=== PATIENT | female | born 1980 | race Caucasian/White ===

== ENCOUNTER → 2018-10-20 10:35 | Outpatient (CLI) | payer OTHER, SELFPAY ==
--- NOTE | 2018-10-20 12:18 | NEURO ---
NCS and/or EMG Patient Report Ordering Doctor: Carrie Weeks DATE OF SERVICE: 10/20/18 Shira Morse is a 38-year-old female presents for electrodiagnostic testing of the upper limbs. She reports numbness and tingling in both hands. She also reports neck pain that intermittently radiates into the upper limbs. Next Electrodiagnostic findings: The right median motor nerve demonstrates prolonged distal latency with normal amplitude and conduction velocity. Left median motor response is within normal limits. Ulnar motor response is normal bilaterally, including conduction across the elbow. Normal median and ulnar F-wave bilaterally. Prolonged median sensory latency is noted bilaterally. Normal ulnar and radial sensory responses. Needle EMG testing shows no evidence of denervation with normal motor unit action potentials. Next Electrodiagnostic impression: This is an abnormal study in the upper limbs. 1. Electrodiagnostic findings demonstrate bilateral median mononeuropathy. This is consistent with a mild left carpal tunnel syndrome and a moderate right carpal tunnel syndrome 2. No electrodiagnostic evidence is noted for cervical radiculopathy. If there are any further questions, please do not hesitate to contact me.
== END ==
PROVIDERS: Family Provider Family Medicine; PCP Family Medicine; Referring Provider Anesthesiology Pain Medicine; Visit Provider Anesthesiology Pain Medicine
DX: R20.0 Anesthesia of skin (principal); R29.898 Other symptoms and signs involving the musculoskeletal system
CPT/HCPCS: 95886; 95913

== ENCOUNTER → 2019-11-02 13:29 | Outpatient (CLI) | payer OTHER, SELFPAY ==
[2015-09-29 12:49] VITALS: BMI 24.5
--- NOTE | 2019-11-02 13:33 | RAD_ITS ---
STUDY: X-RAY - LUMBAR SPINE REASON FOR EXAM: Female, 39 years old. Back pain radiating toward upper and lower extremities. Right flank pain. TECHNIQUE: 2 view(s) of the lumbar spine were obtained. COMPARISON: None FINDINGS: Normal lumbar lordosis. There is no substantial scoliosis. There is a normal alignment of the vertebrae. Normal vertebral bodies and endplates. Normal disc space heights. Multiple phleboliths. RAD/Lumbar Spine 2 or 3 Views IMPRESSION: No abnormality of the lower thoracic or lumbosacral spine. Electronically Signed: Con Rocha MD at 17:57 EST , Service support ,
--- NOTE | 2019-11-02 13:34 | RAD_ITS ---
STUDY: X-RAY - THORACIC SPINE REASON FOR EXAM: Female, 39 years old. Back pain with radiation to upper and lower extremities. TECHNIQUE: 3 view(s) of the thoracic spine were obtained on 4 images. COMPARISON: None. FINDINGS: Normal kyphosis of the thoracic spine. There is no substantial scoliosis. Normal thoracic vertebrae and endplates. Minimal intervertebral disc space narrowing with small osteophytes randomly distributed. The soft tissue structures are unremarkable. RAD/Thoracic Spine 3 Views IMPRESSION: Minimal thoracic spondylosis. No acute finding. Electronically Signed: Con Rocha MD at 17:57 EST , Service support ,
== END ==
PROVIDERS: Family Provider Family Medicine; PCP Family Medicine; Referring Provider Anesthesiology Pain Medicine; Visit Provider Anesthesiology Pain Medicine
DX: M47.814 Spondylosis without myelopathy or radiculopathy, thoracic region (principal); M54.5 Low back pain
CPT/HCPCS: 72072; 72100

== ENCOUNTER → 2020-05-09 13:24 | Outpatient (CLI) | payer OTHER, SELFPAY ==
[2015-09-29 12:49] VITALS: BMI 24.5
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
== END ==
PROVIDERS: PCP Family Medicine; Referring Provider Anesthesiology Pain Medicine; Visit Provider Anesthesiology Pain Medicine
DX: M54.2 Cervicalgia (principal); M54.9 Dorsalgia, unspecified
CPT/HCPCS: 72040; 72100

== ENCOUNTER 2021-12-05 09:56 | Day surgery (SDC) | payer OTHER, MEDICARE, SELFPAY ==
--- NOTE | 2021-12-05 10:07 | PCM.HP.BLA ---
History and Physical Date of Admission: 12/05/21 41 F who presents to the office today for Referred for evaluation of gastrointestinal issues with possible clostridium difficile in which she was diagnosed in July,. Onset of symptoms of April. Treated with Vancomycin x 2weeks, positive test, difficid treatment for ten days with completion in late September. Continuing to have pain with PO intake. Diarrhea continues with urgent diarrhea occurring 3-5 times a day with possible improvement in the last couple days. Also reports that overheating causes diarrhea so vacations are scheduled when the weather is cooler. Miralax used when pain becomes difficult. Reports Colonoscopy and 10-12 years prior. These were done due to stomach issues with biopsies performed and diagnosis of H.Pylori with treatment completed. Family history of paternal grandfather had esophageal cancer. Father had bile duct cancer with mets to colon with resection. Paternal grandmother has colon cancer. Paternal grandmothers family also had a lot of cancers. Mother?s side of the family has a lot of mental health diagnoses. Brother has Crohn?s disease. Her daughter is undergoing workup for Crohn?s versus colitis. ROS Const Constitutional: No anorexia, fatigue, fever(s), weight change or sleep problems Eyes Eyes: No change in vision ENT ENT: No abnormal hearing, difficulty swallowing, mouth lesions, tongue swelling or throat swelling Resp Respiratory: No cough or shortness of breath Cardio Cardiology: No chest pain at rest, chest pain with exertion, shortness of breath or dyspnea on exertion Gastro GI: No difficulty swallowing Genitourinary-Female: No difficulty urinating or burning urination Musc Musculoskeletal: No joint pain, joint swelling, muscle weakness or decreased muscle mass Skin Skin: No hair loss in leg, yellowing of the eye, itchy eyes, rash, skin ulcer or skin swelling Neuro Neurology: No abnormal hearing, abnormal movements, confusion, unsteady gait/balance or memory loss Psych Psychiatric: No anxiety, No confusion and No memory loss Endo Endocrine: No fatigue or weight change Aller/Imm Allergy/Immunologic: No itchy eyes, throat swelling or tongue swelling Vernon/Lymp Hematologic/Lymphatic: No easy bleeding, easy bruising or enlarged lymph nodes Exam Const General: cooperative and comfortable Nutritional Appearance: average body habitus and well nourished HENMT Head: normal to inspection Ears: hearing grossly normal bilaterally Nose: external nose normal Face and sinus: normal facial exam Mouth: oral mucosae normal Throat: posterior oropharynx normal Eyes General: appearance normal, both eyes and all related structures Neck Neck: normal visual inspection Chest Chest palpation & inspection: normal inspection of the chest and normal palpation of entire chest wall Resp Effort & Inspection: normal respiratory effort Auscultation: Bilateral: Clear to Auscultation Cardio Palpation: normal PMI Rate: regular rate Rhythm: regular rhythm GI Inspection: normal to inspection Auscultation: normal bowel sounds Percussion: normal to percussion Palpation: no hepatosplenomegaly Skin General: no rashes or lesions noted Neuro General: patient alert Extrem General: normal to inspection Psych Affect: normal affect Quality Reporting Tobacco Screening ([facility] 138) Smoking Status: Current every day smoker Assessment and Plan Assessment and Plan (1) C. difficile colitis: Status: Acute Plan - Dr. Pires Friend, DO: We will get the stool studies for C. difficile. If she is positive she will need to go back on fadoximyocin or vancomycin. She may also need a fecal transplant. We will perform a colonoscopy to see if she has inflammatory bowel disease as her brother has inflammatory bowel disease and infection is known to be an inciting event prior to the development. I will put her on colestipol and Bentyl for the cramping. (2) Abdominal pain: Status: Acute Plan - Dr. Pires Friend, DO: Abdominal pain possibly secondary to underlying peptic ulcer disease the patient has a history of H. pylori. She will undergo an upper endoscopy evaluate her esophagus due to family history of esophageal cancer in her stomach from H. pylori. (3) Family history of esophageal cancer: Status: Acute Plan Details Other Medications: New: colestipol 1 g PO BID 60 tabs 1RF Marciapj Sotomayor DAT[employer]OWER CONSULTANT, DATAPOWER CONSULTANT-C dicyclomine 20 mg PO TID PRN 90 tabs 1RF diarrhea and cramping Marciapj Sotomayor DATAPOWER CONSULTANT, DATAPOWER CONSULTANT-C vancomycin Take one capsule every six hours when also taking antibiotics. 125 mg PO Q6H 10 days [address] Pires Friend, DO I have re-examined the patient. There are no clinical changes since date of exam.
[2021-12-05 10:39] VITALS: BP 115/72; PULSE 50; RESP 16; TEMP 36; O2SAT 99; BMI 23.3
[2021-12-05] MEDS: Lactated Ringers 1,000 ML 15 ML IV (10:43)
--- NOTE | 2021-12-05 11:00 | COLBX_PTH ---
PATIENT: JUANA PAIGE LOC: EN U#:[id number] AGE/SX: 41/F ROOM: RE12/05/[address]: Dr. Pranay Saenz DO : 1980 BED: DIS: 12/05/2021 SPEC #: [id number] RECD: 12/05/21 14:31 STATUS: DEEPAK PARVIN #: [id number] PEPE: 12/05/21 11:[address]: Pranay Saenz DEPT: SURGICAL PATHOLOGY RECD BY: Yolande Parr ENTERED: 12/06/21 09:25 SP TYPE: COLON BX OTHR DR: Dr. Michael Hicks MD Tissues: A - Duodenum, NOS B - COLON BIOPSY C - Gastric mucous membrane D - Esophagus, NOS E - Ileum, NOS F - COLON BIOPSY Procedures: Special Stain Group II Surgery Specimen Level IV Alcian Blue/PAS (control) HEADER OPERATION: Colonoscopy with biopsy, EGD with biopsy ([facility] [place]) PRE-OP DIAGNOSIS: C. difficile colitis, abdominal pain, family history esophageal cancer TISSUE SUBMITTED: A ? Duodenum biopsy, B ? Pylorus biopsy, C ? Gastric body biopsy, D ? Distal esophagus biopsy, E ? Terminal ileum biopsy, F ? Random colon biopsy MICROSCOPIC DIAGNOSIS A. Duodenum, biopsy: Fragments of duodenal mucosa, no pathologic diagnosis. B. Pylorus biopsy: Mild gastritis. Focal intestinal metaplasia. See comment. C. Gastric body, biopsy: Mild gastritis. See microscopic description and comment. D. Distal esophagus, biopsy: Fragments of gastroesophageal mucosa with moderate chronic inflammation. Intestinal metaplasia (goblet cell metaplasia) not identified. See comment. E. Terminal ileum, biopsy: Fragments of small intestinal mucosa, no pathologic diagnosis. F. Colon, random biopsy: Fragments of colonic mucosa, no pathologic diagnosis. SJ:deepa 12/09/2021 COMMENT B. Alcian blue/PAS stain with matched control is used in the evaluation of the specimen. B & C. Immunohistochemistry for Helicobacter pylori can be performed if clinically indicated. Please notify the Laboratory if it is needed. D. Alcian blue/PAS stain with matched control is used in the evaluation of the specimen. MICROSCOPIC DESCRIPTION Slides are reviewed. B & C. The specimen shows fragments of gastric mucosa with chronic inflammatory cell infiltrates in the lamina propria consisting of lymphocytes and plasma cells, consistent with mild chronic gastritis. Specimen B also show focal intestinal metaplasia. GROSS DESCRIPTION A - Received in fixative is one container labeled with the patient's name and designated duodenum biopsy. The specimen consists of multiple irregular fragments of light lopez soft tissue that in aggregate measure 1 x 0.4 x 0.1 cm. The specimen is totally submitted in one cassette. B - Received in fixative is one container labeled with the patient's name and designated pylorus biopsy. The specimen consists of two irregular fragments of light lopez soft tissue that in aggregate measure 0.6 x 0.3 x 0.1 cm. The specimen is totally submitted in one cassette. C - Received in fixative is one container labeled with the patient's name and designated gastric body biopsy. The specimen consists of two irregular fragments of light lopez soft tissue that in aggregate measure 0.8 x 0.3 x 0.1 cm. The specimen is totally submitted in one cassette. D - Received in fixative is one container labeled with the patient's name and designated distal esophagus biopsy. The specimen consists of multiple irregular fragments of light lopez soft tissue that in aggregate measure 1 x 0.3 x 0.1 cm. The specimen is totally submitted in one cassette. E - Received in fixative is one container labeled with the patient's name and designated terminal ileum biopsy. The specimen consists of two irregular fragments of light lopez soft tissue that in aggregate measure 0.8 x 0.3 x 0.1 cm. The specimen is totally submitted in one cassette. F - Received in fixative is one container labeled with the patient's name and designated random colon biopsy. The specimen consists of multiple irregular fragments of light lopez soft tissue that in aggregate measure 1 x 0.3 x 0.1 cm. The specimen is totally submitted in one cassette. / HECTOR:deepa 12/06/2021 TC:3 CPT: 91108 x6, 00952 x2
--- NOTE | 2021-12-05 12:06 | OP.EGD_ITS ---
Patient Name: Shira Morse Procedure Date: 12/05/2021 11:42 AM Date of : 1980 Age: 41 Procedure: Upper GI endoscopy Indications: Epigastric abdominal pain, Dyspepsia, Heartburn Providers: Pranay Saenz DO Referring MD: Pranay Saenz DO Medicines: See the Anesthesia note for documentation of the administered medications Patient Profile: This is a 41 year old female. Refer to note in patient chart for documentation of history and physical. Patient has symptoms of chronic abdominal cramping and chronic heartburn. Complications: No immediate complications. Procedure: Pre-Anesthesia Assessment: - Prior to the procedure, a History and Physical was performed, and patient medications and allergies were reviewed. The risks and benefits of the procedure and the sedation options and risks were discussed with the patient. All questions were answered and informed consent was obtained. Patient identification and proposed procedure were verified by the physician. Mental Status Examination: normal. Prophylactic Antibiotics: The patient does not require prophylactic antibiotics. Prior Anticoagulants: The patient has taken no previous anticoagulant or antiplatelet agents. After reviewing the risks and benefits, the patient was deemed in satisfactory condition to undergo the procedure. The anesthesia plan was to use moderate sedation / analgesia (conscious sedation). Immediately prior to administration of medications, the patient was re-assessed for adequacy to receive sedatives. The heart rate, respiratory rate, oxygen saturations, blood pressure, adequacy of pulmonary ventilation, and response to care were monitored throughout the procedure. The physical status of the patient was re-assessed after the procedure. After obtaining informed consent, the endoscope was passed under direct vision. Throughout the procedure, the patient's blood pressure, pulse, and oxygen saturations were monitored continuously. The Colonoscope was introduced through the mouth, and advanced to the second part of duodenum. The upper GI endoscopy was accomplished without difficulty. The patient tolerated the procedure well. Moderate Sedation: Moderate (conscious) sedation was administered by the endoscopy nurse and supervised by the endoscopist. The following parameters were monitored: oxygen saturation, heart rate, blood pressure, and response to care. Total physician intraservice time was 15 minutes. Scope In: 11:55:36 AM Scope Out: 12:02:33 PM Total Procedure Duration Time 0 hours 6 minutes 57 seconds Findings: LA Grade A (one or more mucosal breaks less than 5 mm, not extending between tops of 2 mucosal folds) esophagitis with no bleeding was found 34 to 35 cm from the incisors. Estimated blood loss was minimal. Localized mild inflammation characterized by erythema was found at the pylorus. Biopsies were taken with a cold forceps for histology. Verification of patient identification for the specimen was done. Estimated blood loss was minimal. There was gastritis seen in the gastric body biopsies were taken. Diffuse erythematous mucosa without active bleeding and with no stigmata of bleeding was found in the duodenal bulb. Biopsies were taken with a cold forceps for histology. Verification of patient identification for the specimen was done. Estimated blood loss was minimal. Impression: - LA Grade A reflux esophagitis. - Gastritis. Biopsied. - Erythematous duodenopathy. Biopsied. Recommendation: - Discharge patient to home. - Resume previous diet. - Continue present medications. - Await pathology results. - Return to my office. Procedure Code(s): --- Professional --- 99781, Esophagogastroduodenoscopy, flexible, transoral; with biopsy, single or multiple 71631, 59, Moderate sedation services provided by the same physician or other qualified health primary care coordinator performing the diagnostic or therapeutic service that the sedation supports, requiring the presence of an independent trained observer to assist in the monitoring of the patient's level of consciousness and physiological status; initial 15 minutes of intraservice time, patient age 5 years or older CPT copyright 2017 [employer]. All rights reserved. The codes documented in this report are preliminary and upon airconditioning drafting officer review may be revised to meet current compliance requirements. Pranay Saenz DO 12/05/2021 12:06:03 PM This report has been signed electronically. Number of Addenda: 1 Note Initiated On: 12/05/2021 11:42 AM Addendum Number: 1 Addendum Date: 07/07/2022 6:43:14 AM MAC was used for sedation during this procedure. Pranay Saenz DO 07/07/2022 6:43:19 AM This report has been signed electronically.
--- NOTE | 2021-12-05 12:07 | OP.CCLET_ITS ---
07/07/2022 Michael Hicks [address] [place] [address] Re : Upper GI endoscopy procedure for Shira Over Dear Dr. Hicks This procedure was performed on November. My impressions and recommendations are as follows: Impressions : - LA Grade A reflux esophagitis. - Gastritis. Biopsied. - Erythematous duodenopathy. Biopsied. Recommendations : - Discharge patient to home. - Resume previous diet. - Continue present medications. - Await pathology results. - Return to my office. My findings are described in the full procedure note, which is enclosed. If I can be of further assistance, please feel free to contact me at . Sincerely, Pranay Saenz, 12/05/2021 12:06:03 PM This report has been signed electronically.
[2021-12-05 12:25] VITALS: BP 111/77; BP 115/72; PULSE 60; RESP 16; TEMP 36.7; O2SAT 96
--- NOTE | 2021-12-05 12:26 | OP.CCLET_ITS ---
07/07/2022 Michael Hicks [address] [place] [address] Re : Colonoscopy procedure for Shira Over Dear Dr. Hicks This procedure was performed on November. My impressions and recommendations are as follows: Impressions : - Congested mucosa in the ascending colon. Biopsied. - The examined portion of the ileum was normal. Biopsied. Recommendations : - Discharge patient to home. - Resume previous diet. - Continue present medications. - Await pathology results. - Repeat colonoscopy in 5 years for surveillance based on pathology results. - Return to GI office. My findings are described in the full procedure note, which is enclosed. If I can be of further assistance, please feel free to contact me at . Sincerely, Pranay Saenz, 12/05/2021 12:25:17 PM This report has been signed electronically.
--- NOTE | 2021-12-05 12:26 | OP.COLON_ITS ---
Patient Name: Shira Morse Procedure Date: 12/05/2021 12:03 PM Date of : 1980 Age: 41 Procedure: Colonoscopy Indications: Generalized abdominal pain, Clinically significant diarrhea of unexplained origin Providers: Pranay Saenz DO Referring MD: Pranay Saenz DO Medicines: See the Anesthesia note for documentation of the administered medications Patient Profile: This is a 41 year old female. Refer to note in patient chart for documentation of history and physical. Patient has symptoms of chronic abdominal cramping and chronic heartburn. Last Colonoscopy: none. The patient's first colonoscopy is today. Complications: No immediate complications. Procedure: Pre-Anesthesia Assessment: - Prior to the procedure, a History and Physical was performed, and patient medications and allergies were reviewed. The risks and benefits of the procedure and the sedation options and risks were discussed with the patient. All questions were answered and informed consent was obtained. Patient identification and proposed procedure were verified by the physician. Mental Status Examination: normal. Prophylactic Antibiotics: The patient does not require prophylactic antibiotics. Prior Anticoagulants: The patient has taken no previous anticoagulant or antiplatelet agents. After reviewing the risks and benefits, the patient was deemed in satisfactory condition to undergo the procedure. The anesthesia plan was to use moderate sedation / analgesia (conscious sedation). Immediately prior to administration of medications, the patient was re-assessed for adequacy to receive sedatives. The heart rate, respiratory rate, oxygen saturations, blood pressure, adequacy of pulmonary ventilation, and response to care were monitored throughout the procedure. The physical status of the patient was re-assessed after the procedure. After I obtained informed consent, the scope was passed under direct vision. Throughout the procedure, the patient's blood pressure, pulse, and oxygen saturations were monitored continuously. The Colonoscope was introduced through the anus and advanced to the terminal ileum. The terminal ileum, ileocecal valve, appendiceal orifice, and rectum were photographed. Moderate Sedation: Moderate (conscious) sedation was administered by the endoscopy nurse and supervised by the endoscopist. The patient's oxygen saturation, heart rate, blood pressure and response to care were monitored. Total physician intraservice time was 15 minutes. Scope In: 12:07:58 PM Scope Withdrawal Time 0 hours 8 minutes 45 seconds Scope Out: 12:20:58 PM Total Procedure Duration Time 0 hours 13 minutes 0 seconds Findings: The perianal and digital rectal examinations were normal. An area of mildly congested mucosa was found in the recto-sigmoid colon, in the sigmoid colon, in the descending colon, in the transverse colon and in the ascending colon. Biopsies were taken with a cold forceps for histology. Verification of patient identification for the specimen was done. Estimated blood loss was minimal. The terminal ileum appeared normal. Biopsies were taken with a cold forceps for histology. Verification of patient identification for the specimen was done. Estimated blood loss was minimal. Impression: - Congested mucosa in the ascending colon. Biopsied. - The examined portion of the ileum was normal. Biopsied. Recommendation: - Discharge patient to home. - Resume previous diet. - Continue present medications. - Await pathology results. - Repeat colonoscopy in 5 years for surveillance based on pathology results. - Return to GI office. Procedure Code(s): --- Professional --- 39677, Colonoscopy, flexible; with biopsy, single or multiple 53742, 59, Moderate sedation services provided by the same physician or other qualified health pet caretaker performing the diagnostic or therapeutic service that the sedation supports, requiring the presence of an independent trained observer to assist in the monitoring of the patient's level of consciousness and physiological status; initial 15 minutes of intraservice time, patient age 5 years or older CPT copyright 2017 [employer]. All rights reserved. The codes documented in this report are preliminary and upon count room clerk review may be revised to meet current compliance requirements. Pranay Saenz DO 12/05/2021 12:25:17 PM This report has been signed electronically. Number of Addenda: 1 Note Initiated On: 12/05/2021 12:03 PM Addendum Number: 1 Addendum Date: 07/07/2022 6:43:27 AM MAC was used for sedation during this procedure. Pranay Saenz DO 07/07/2022 6:43:31 AM This report has been signed electronically.
[2021-12-05 12:30] VITALS: BP 110/70; BP 115/72; PULSE 59; RESP 16; O2SAT 100
[2021-12-05 12:35] VITALS: BP 114/68; BP 115/72; PULSE 59; RESP 16; O2SAT 100
[2021-12-05 12:40] VITALS: BP 115/72; BP 119/72; PULSE 57; RESP 16; TEMP 36.2; O2SAT 100
[2021-12-05 13:02] VITALS: BP 115/72
== END 2021-12-05 23:59 | disposition home or self-care (01) ==
LOC: EN 10:00 → AC 10:01
PROVIDERS: PCP Family Medicine; Referring Provider Family Medicine; Visit Provider Internal Medicine Gastroenterology
PROC: 0DJD8ZZ Inspection of Lower Intestinal Tract, Via Natural or Artificial Opening Endoscopic (ICD-10-PCS; CPT 45378; principal; 2021-12-05 10:55)
DX: K21.00 Gastro-esophageal reflux disease with esophagitis, without bleeding (principal); M06.9 Rheumatoid arthritis, unspecified; K29.70 Gastritis, unspecified, without bleeding; K31.89 Other diseases of stomach and duodenum; K63.89 Other specified diseases of intestine; R10.84 Generalized abdominal pain; R19.7 Diarrhea, unspecified; I10 Essential (primary) hypertension; F32.A Depression, unspecified; F41.9 Anxiety disorder, unspecified; F17.200 Nicotine dependence, unspecified, uncomplicated; Z20.822 Contact with and (suspected) exposure to COVID-19; Z79.899 Other long term (current) drug therapy; Z86.19 Personal history of other infectious and parasitic diseases; Z80.0 Family history of malignant neoplasm of digestive organs; Z83.79 Family history of other diseases of the digestive system
CPT/HCPCS: 45380; 43239; 87426; 87493; 87506; 88305; 88313; C9803; J7120; J2405

== ENCOUNTER → 2022-02-14 | Outpatient (CLI) | payer OTHER, MEDICARE, SELFPAY ==
[2022-02-14 10:18] LABS: Absolute Lymphocyte Count 2.51 X10^3/uL (0.83-4.51); Absolute Neutrophil Count 4.9 X10^3/uL (2.0-7.7); Basophil# 0.08 X10^3/uL; Eosinophil# 0.16 X10^3/uL; Eosinophils% 1.9 % (0-5); Hematocrit 39.5 % (37-47); Hemoglobin 13.1 g/dL (12.0-15.0); Lymphocyte # 2.51 X10^3/ul (0.83-4.51); Lymphocyte % 29.9 % (19-41); Mean Corp Hgb Conc 33.2 g/dL (32-36); Mean Corpuscular Volume 96.6 fL (81-99); Mean Platelet Vol. 10.7 fl (6.2-12.0); Monocyte# 0.69 X10^3/uL; Monocyte% 8.2 % (0-10); NRBC Flagged by Analyzer 0 % (0-5); Neutrophil # 4.92 X10^3/uL (2.7-7.7); Neutrophil % 58.5 % (47-70); Platelet Count 282 K/mm3 (150-450); RBC Distribution Width CV 12.1 % (11.6-14.6); RBC Distribution Width SD 42.8 fl (35.1-43.9); Red Blood Count 4.09 M/mm3 (4.2-5.4); White Blood Count 8.4 K/mm3 (4.4-11.0)
[2022-02-14 10:50] LABS: ALB/GLOB Ratio 1.1 RATIO (0.9-2.4); AST(SGOT) 12 U/L (15-37); Alanine Aminotransfer ALT/SGPT 22 U/L (13-56); Albumin, Serum 3.7 g/dL (3.2-5.0); Alkaline Phosphatase 51 U/L (45-117); Amylase 37 U/L (25-115); Anion Gap 3 (5-15); BUN 17 mg/dL (7-18); BUN/Creat Ratio 18.2 RATIO (10-20); Calcium,Total 8.2 mg/dL (8.5-10.1); Chloride 107 mmol/L (98-107); Creatinine, Serum 0.93 mg/dL (0.55-1.02); EST Glomerular Filtration Rate 71 mL/min (>60); Est Glom Filt Rate - Afr Amer 86 mL/min (>60); Globulin 3.4 g/dL (2.2-4.2); Glucose 91 mg/dL (74-106); Lipase 116 U/L (73-393); Potassium 3.5 mmol/L (3.5-5.1); Protein, Total 7.1 g/dL (6.4-8.2); Sodium Level 139 mmol/L (136-145)
[2022-02-20 22:19] LABS: Carbohydrate Ag 19-9 2261 < 2 U/mL (0-35); Carcinoembryonic Antigen 2139 1.5 ng/mL (0.0-4.7)
== END | disposition home or self-care (01) ==
PROVIDERS: PCP Family Medicine; Referring Provider Internal Medicine Gastroenterology; Visit Provider Internal Medicine Gastroenterology
DX: A04.72 Enterocolitis due to Clostridium difficile, not specified as recurrent (principal)
CPT/HCPCS: 36415; 80053; 82150; 82378; 83690; 85025; 86301

== ENCOUNTER → 2022-02-18 | Outpatient (CLI) | payer OTHER, MEDICARE, SELFPAY ==
[2022-02-25 15:34] LABS: Pancreatic Elastase, Fecal > 500 (>200)
== END | disposition home or self-care (01) ==
LOC: MTLAB 14:36
PROVIDERS: PCP Family Medicine; Referring Provider Internal Medicine Gastroenterology; Visit Provider Internal Medicine Gastroenterology
DX: A04.72 Enterocolitis due to Clostridium difficile, not specified as recurrent (principal)
CPT/HCPCS: 82653

== ENCOUNTER → 2022-04-14 | Outpatient (CLI) | payer OTHER, SELFPAY | END | disposition home or self-care (01) | LOC: LABSPEC 10:18 | PROVIDERS: PCP Family Medicine; Visit Provider Nurse Practitioner Adult Health | DX: A04.72 Enterocolitis due to Clostridium difficile, not specified as recurrent (principal) | CPT/HCPCS: 87493 ==

== ENCOUNTER → 2022-06-13 | Outpatient (CLI) | payer OTHER, SELFPAY | END | disposition home or self-care (01) | LOC: LABSPEC 08:50 | PROVIDERS: PCP Family Medicine; Referring Provider Nurse Practitioner Adult Health; Visit Provider Nurse Practitioner Adult Health | DX: A04.72 Enterocolitis due to Clostridium difficile, not specified as recurrent (principal) | CPT/HCPCS: 87493 ==

== ENCOUNTER 2022-06-24 09:12 | Outpatient (CLI) | payer OTHER, MEDICARE, SELFPAY | END 2022-06-24 23:59 | disposition home or self-care (01) | LOC: LABSPEC 09:15 | PROVIDERS: PCP Family Medicine; Referring Provider Nurse Practitioner Adult Health; Visit Provider Nurse Practitioner Adult Health | DX: A04.72 Enterocolitis due to Clostridium difficile, not specified as recurrent (principal) | CPT/HCPCS: 87493 ==

== ENCOUNTER 2022-07-20 12:29 | Emergency (ER) | payer OTHER, SELFPAY ==
[2022-07-20 12:31] VITALS: BP 129/82; PULSE 63; RESP 18; TEMP 36.3; O2SAT 99; BMI 22.4
--- NOTE | 2022-07-20 12:47 | RAD_ITS ---
EXAM: XR CHEST, 1 VIEW CLINICAL INDICATION: chest pain TECHNIQUE: Frontal view of the chest. This report was created using [employer] report generation technology. COMPARISON: None. FINDINGS: LUNGS AND PLEURAL SPACES: Unremarkable. No consolidation or edema. No pneumothorax. No effusion. HEART: Unremarkable. Cardiac silhouette not enlarged. MEDIASTINUM: Central airways and mediastinal contour are unremarkable. BONES/JOINTS: Unremarkable. SOFT TISSUES: Unremarkable. RAD/Chest 1 View (Portable) IMPRESSION: No radiographic evidence of acute cardiopulmonary disease. Electronically Signed: Amadeo Nathan MD at 13:02 EDT ,
--- NOTE | 2022-07-20 12:55 | EDS_ITS ---
HPI <JEREMIAH Seymour - Last Filed: 07/20/22 15:14> History of Present Illness Chief Complaint: Chest Other Narrative Narrative: 42-year-old female with history of hypertension, anxiety, depression presents to the [facility] for worsening dizziness, fatigue, secondary to low heart rate. Patient states that this has been going on for months. Patient was on metoprolol 100 mg, hydrochlorothiazide for her blood pressure. She called her doctor 2 weeks ago who had her take half of the metoprolol to 50 mg a day. Patient states she wears her apple watch at nighttime, she is having heart rates in the 30s as well as intermittent low oxygen. Patient states that she feels generalized fatigue, dizzy with walking, and currently has a Holter monitor placed by her PCP. Patient has not seen a rn or lpn, patient denies any infectious symptoms. Denies any fever chills PFSH <JEREMIAH Seymour - Last Filed: 07/20/22 15:14> PFSH Medical History Alcohol use Anemia Anxiety Back pain C. difficile diarrhea Depression Gastric reflux History of epidural anesthesia History of IBS History of renal disease History of steroid therapy Hypertension Injury of back Injury of head and neck Kidney stones Marijuana use Medical cannabis use Migraine headache Rheumatoid arthritis Smoker Wears glasses Home Medications gabapentin 100 mg capsule 300 mg PO .6 TIMES DAILY 09/29/15 [History Last Taken Unknown] colestipol 1 gram tablet 1 g PO BID #60 tabs 11/01/21 [Rx Last Taken Unknown] dicyclomine 20 mg tablet 20 mg PO TID PRN diarrhea and cramping #90 tabs 11/01/21 [Rx Last Taken Unknown] bupropion HCl 150 mg 24 hr tablet, extended release (Wellbutrin XL) 150 mg PO DAILY 12/04/21 [History Last Taken Unknown] cetirizine 10 mg tablet (Zyrtec) 10 mg PO DAILY 12/04/21 [History Last Taken Unknown] fluoxetine 20 mg capsule 20 mg PO DAILY 12/04/21 [History Last Taken Unknown] guaifenesin 1,200 mg tablet, extended release 12 hr (Mucinex) 1,200 mg PO PRN PRN Congestion 12/04/21 [History Last Taken Unknown] hydrochlorothiazide 25 mg tablet 25 mg PO DAILY 12/04/21 [History Last Taken Unknown] metoprolol succinate 50 mg tablet,extended release 24 hr 100 mg PO DAILY 12/04/21 [History Last Taken Unknown] sucralfate 1 gram tablet (Carafate) 1 g PO QAC #90 tabs 12/19/21 [Rx Last Taken Unknown] bdgczb-wbacehfw-lthfdwe 36,000-114,000-180,000 unit capsule,delay rel (Creon) 1 cap PO TID #90 caps 02/03/22 [Rx Last Taken Unknown] rifaximin 550 mg tablet (Xifaxan) 550 mg PO TID 2 weeks #42 tabs 02/03/22 [Rx Last Taken Unknown] bezlotoxumab 25 mg/mL intravenous solution (Zinplava) See Rx Instructions .Route .COMPLEX #40 mL 03/06/22 [Rx Last Taken Unknown] pantoprazole 40 mg tablet,delayed release See Rx Instructions .Route .COMPLEX #60 tabs 03/21/22 [Rx Last Taken Unknown] vancomycin 250 mg capsule 125 mg PO Q6H #60 caps 04/10/22 [Rx Last Taken Unk nown] lisinopril 10 mg tablet 10 mg PO DAILY #30 tabs 07/20/22 [Rx Last Taken Unknown] Allergy/AdvReac Type Severity Reaction Status Date / Time No Known Allergies Allergy Verified 07/20/22 12:30 Surgical History History of carpal tunnel release of both wrists History of myringotomy Hx of adenoidectomy Hx of tubal ligation Social History Smoking Status: Current every day smoker tobacco type: cigarettes ROS <JEREMIAH Seymour - Last Filed: 07/20/22 15:14> ROS ED ROS Narrative Constitutional: Negative for fever, chills, weight loss. Positive generalized weakness Eyes: Negative for vision loss, vision change, double vision ENT: Negative for any sore throat, ear pain, congestion Cardiovascular: Negative for any chest pain, palpitations. Positive chest tightness, low heart rate Respiratory: Negative for any cough, sputum production, hemoptysis, dyspnea on exertion, orthopnea. Positive intermittent dyspnea Gastrointestinal: Negative for any abdominal pain, nausea, vomiting, diarrhea, constipation, blood in stool, blood in vomit : Negative for any urinary frequency, dysuria, retention, blood in urine Muscle skeletal: Negative for any muscle joint pain, stiffness, myalgias, arthralgias, neck pain, back pain Neurological: Negative for any headache, syncope, numbness or tingling, dizziness Skin: Negative for any rashes, lumps, itching, abrasions, lacerations Psychiatric: Negative for any depression, anxiety, stress, suicidal ideation, homicidal ideation Hematologic: Negative for any easy bruising, excessive bruising, easy bleeding Allergies: Negative for any eczema, hives, rash EXAM <JEREMIAH Seymour - Last Filed: 07/20/22 15:14> Physical Exam Narrative Exam Narrative: Vital signs reviewed. HEET: Head normocephalic atraumatic, TMs clear bilaterally. Posterior pharynx is clear, moist mucous membranes. Nares clear bilaterally. Neck: Supple with no lymphadenopathy or tenderness. No signs of meningismus, negative jolt sign. Cardiac: Regular rate and rhythm no murmurs gallops or rubs, equal peripheral pulses bilaterally. Respiratory: Lungs clear to auscultation bilaterally. No chest tenderness. Abdomen: Soft, nontender, nondistended. No abdominal bruit or pulsatile masses. No hepatosplenomegaly Extremities: No peripheral edema, no signs of gross trauma or deformity. Active full range of motion of all extremities. Neuro: Cranial nerves II through XII intact, no focal neurological deficits. Skin: Clean dry and intact with no rash, purpura, petechiae, vesicles or pustules. Backs/flank: No CVA tenderness, no midline spinal tenderness, no deformity. Psych: Normal mood and affect. No SI, HI or acute psychosis. Const Vital Signs: 07/20/22 12:31 07/20/22 13:12 07/20/22 13:35 Temperature 97.3 F L Temperature Source Temporal Pulse Rate 63 Pulse Rate [Lying] 51 L Pulse Rate [Sitting (for 1 minute prior to obtaining)] 57 L Pulse Rate [Standing (for 1 minute prior to obtaining)] 60 Respiratory Rate 18 Blood Pressure 129/82 H Blood Pressure [Lying] 110/66 Blood Pressure [Sitting (for 1 minute prior to obtaining)] 119/73 Blood Pressure [Standing (for 1 minute prior to obtaining)] 111/82 H Blood Pressure Mean 97 Blood Pressure Mean [Lying] 80 Blood Pressure Mean [Sitting (for 1 minute prior to obtaining)] 88 Blood Pressure Mean [Standing (for 1 minute prior to obtaining)] 91 Pulse Ox 99 Oxygen Delivery Method Room Air Room Air 07/20/22 14:35 Temperature Temperature Source Pulse Rate 44 L Pulse Rate [Lying] Pulse Rate [Sitting (for 1 minute prior to obtaining)] Pulse Rate [Standing (for 1 minute prior to obtaining)] Respiratory Rate 16 Blood Pressure 113/70 Blood Pressure [Lying] Blood Pressure [Sitting (for 1 minute prior to obtaining)] Blood Pressure [Standing (for 1 minute prior to obtaining)] Blood Pressure Mean 84 Blood Pressure Mean [Lying] Blood Pressure Mean [Sitting (for 1 minute prior to obtaining)] Blood Pressure Mean [Standing (for 1 minute prior to obtaining)] Pulse Ox 97 Oxygen Delivery Method Room Air Positive well nourished and well developed General Appearance ED: well developed <Dr. Ifeanyi Chapa MD - Last Filed: 07/20/22 14:19> Physical Exam Const Vital Signs: 07/20/22 12:31 07/20/22 13:12 07/20/22 13:35 Temperature 97.3 F L Temperature Source Temporal Pulse Rate 63 Pulse Rate [Lying] 51 L Pulse Rate [Sitting (for 1 minute prior to obtaining)] 57 L Pulse Rate [Standing (for 1 minute prior to obtaining)] 60 Respiratory Rate 18 Blood Pressure 129/82 H Blood Pressure [Lying] 110/66 Blood Pressure [Sitting (for 1 minute prior to obtaining)] 119/73 Blood Pressure [Standing (for 1 minute prior to obtaining)] 111/82 H Blood Pressure Mean 97 Blood Pressure Mean [Lying] 80 Blood Pressure Mean [Sitting (for 1 minute prior to obtaining)] 88 Blood Pressure Mean [Standing (for 1 minute prior to obtaining)] 91 Pulse Ox 99 Oxygen Delivery Method Room Air Room Air 07/20/22 14:35 Temperature Temperature Source Pulse Rate 44 L Pulse Rate [Lying] Pulse Rate [Sitting (for 1 minute prior to obtaining)] Pulse Rate [Standing (for 1 minute prior to obtaining)] Respiratory Rate 16 Blood Pressure 113/70 Blood Pressure [Lying] Blood Pressure [Sitting (for 1 minute prior to obtaining)] Blood Pressure [Standing (for 1 minute prior to obtaining)] Blood Pressure Mean 84 Blood Pressure Mean [Lying] Blood Pressure Mean [Sitting (for 1 minute prior to obtaining)] Blood Pressure Mean [Standing (for 1 minute prior to obtaining)] Pulse Ox 97 Oxygen Delivery Method Room Air [facility] <JEREMIAH Seymour - Last Filed: 07/20/22 15:14> [facility] Lab Data Labs: Laboratory Results - last 24 hr 07/20/22 07/20/22 13:05 13:05 WBC 8.8 RBC 4.16 L Hgb 13.2 Hct 38.2 MCV 91.8 MCH 31.7 MCHC 34.6 RDW Std Deviation 39.4 RDW Coeff of Re 11.6 Plt Count 224 MPV 10.5 Immature Gran % (Auto) 0.500 Neut % (Auto) 65.5 Lymph % (Auto) 24.1 Erath % (Auto) 8.1 Eos % (Auto) 1.0 Baso % (Auto) 0.8 Absolute Neuts (auto) 5.8 Absolute Lymphs (auto) 2.11 Nucleated RBC % 0 Sodium 142 Potassium 3.3 L Chloride 107 Carbon Dioxide 25.0 Anion Gap 10 BUN 16 Creatinine 0.83 Estim Creat Clear Calc 81.07 Est GFR (MDRD) Af Amer 98 Est GFR (MDRD) Non-Af 81 BUN/Creatinine Ratio 19.3 Glucose 115 H Calcium 9.0 Troponin I High Sens 5 Radiography Diagnostic Testing: Clinical Impression(s) from Imaging Studies Chest X-Ray 07/20/22 12:47 IMPRESSION: No radiographic evidence of acute cardiopulmonary disease. Electronically Signed: Amadeo Nathan MD at 13:02 EDT , EKG Marked sinus bradycardia: Attestation: I personally reviewed and interpreted this EKG as follows: Comments: Sinus bradycardia, rate of 43 bpm, [place] interval 182 ms, QRS duration 86 ms, is no acute ST elevation, no acute infarct noted. Treatment and Re-Evaluation Narrative: Patient appears well, patient appears nontoxic, vital signs are stable. Patient presents to the emergency department with concerns of low heart rate, dizziness. Patient was originally started on 100 mg of metoprolol however has cut down to 50 mg of metoprolol including hydrochlorothiazide. Patient did receive a cardiac work-up, patient's EKG did show bradycardia, patient CBC, chemistries were unremarkable, patient had a negative troponin. Patient's chest x-ray was unremarkable. At this time, I do believe the patient's symptoms are from the beta-tasha. Patient will be taken off her beta-tasha completely, as well as her hydrochlorothiazide. She will be given a prescription for lisinopril 10 mg, she is instructed to check her blood pressure twice a day and if she has 2-3 readings greater than 140 systolic, then she can start her lisinopril. She will continue to follow-up closely with her PCP and instructed return for any worsening symptoms. <Dr. Ifeanyi Chapa MD - Last Filed: 07/20/22 14:19> [facility] MDM Narrative Medical decision making narrative: I have personally performed a face to face assessment of the patient and have reviewed the LUCITA Note. I performed a substantive portion of the visit including all aspects of the following. My morillo findings include: History is [42-year-old female history of anxiety and hypertension. On metoprolol and hydrochlorothiazide. Recently her heart rates been running low and she has been lightheaded. She initially was placed on his medications for hypertension. They did have to cut her metoprolol from 100 once a day to 50 once a day. She has been on it for approximately 2 years total.] Exam is [well-appearing 42-year-old female. Vital signs stable afebrile. Initial blood pressure 129/82. Heart rate 63. H EENT exam unremarkable. Neck nontender. Lungs clear to auscultation bilaterally. Heart regular rhythm rate about 60 no murmur. Abdomen soft nontender. Moving all 4 extremities. Calves are nontender without edema or cords. Neurologically she is awake and alert.] Medical Decision Making [patient bradycardic on a beta-tasha. She is also on hydrochlorothiazide for her blood pressure. Screening labs will be obtained. If she is doing well we may decide to completely stop the beta-tasha. Follow- up with her primary care provider. Have her watch her blood pressures and decide if she needs to be on blood pressure medication or not.] Other additions or changes: [None] Lab Data Attestation: I reviewed the patient's lab results. Lab results narrative: CBC normal white count 8. H&H of 13 and 38. Labs: Laboratory Results - last 24 hr 07/20/22 07/20/22 13:05 13:05 WBC 8.8 RBC 4.16 L Hgb 13.2 Hct 38.2 MCV 91.8 MCH 31.7 MCHC 34.6 RDW Std Deviation 39.4 RDW Coeff of Re 11.6 Plt Count 224 MPV 10.5 Immature Gran % (Auto) 0.500 Neut % (Auto) 65.5 Lymph % (Auto) 24.1 Erath % (Auto) 8.1 Eos % (Auto) 1.0 Baso % (Auto) 0.8 Absolute Neuts (auto) 5.8 Absolute Lymphs (auto) 2.11 Nucleated RBC % 0 Sodium 142 Potassium 3.3 L Chloride 107 Carbon Dioxide 25.0 Anion Gap 10 BUN 16 Creatinine 0.83 Estim Creat Clear Calc 81.07 Est GFR (MDRD) Af Amer 98 Est GFR (MDRD) Non-Af 81 BUN/Creatinine Ratio 19.3 Glucose 115 H Calcium 9.0 Troponin I High Sens 5 Radiography Chest X-Ray - ED: 1 View, Read by ED Physician, Read by Radiologist, Normal, Heart, Lungs, Mediastinum, Bony Structures, No Acute Disease and Chronic Changes Diagnostic Testing: Clinical Impression(s) from Imaging Studies Chest X-Ray 07/20/22 12:47 IMPRESSION: No radiographic evidence of acute cardiopulmonary disease. Electronically Signed: Amadeo Nathan MD at 13:02 EDT Reading Location ID and State: [address] [place] [address] Tel , Service support , Chest x-ray, portable, single view shows no acute abnormality. Normal cardiac silhouette mediastinum. Discharge Plan Triage Chief Complaint: Chest Other ED Midlevel Provider: Linus Lovell ED Provider: Ifeanyi Chapa Dx/Rx/DC Orders Clinical Impression: Bradycardia, Dizziness, Heart palpitations Instructions: ED Bradycardia, ED Dizziness, Uncertain Cause, ED Palpitations Prescriptions: New lisinopril 10 mg tablet 10 mg PO DAILY Qty: 30 1RF No Action colestipol 1 gram tablet 1 g PO BID Qty: 60 1RF dicyclomine 20 mg tablet 20 mg PO TID PRN (Reason: diarrhea and cramping) Qty: 90 1RF sucralfate [Carafate] 1 gram tablet 1 g PO QAC Qty: 90 0RF Rx Instructions: take three times a day, one hour before meals on an empty stomach for thirty days. Xifaxan 550 mg tablet 550 mg PO TID 14 Days Qty: 42 2RF Creon 36,000-114,000- 180,000 unit capsule,delayed release(DR/EC) 1 cap PO TID Qty: 90 0RF Rx Instructions: administer with meals and/or snacks vancomycin 250 mg capsule 125 mg PO Q6H Qty: 60 0RF gabapentin 100 MG capsule 300 mg PO .6 TIMES DAILY cetirizine [Zyrtec] 10 mg Tablet 10 mg PO DAILY metoprolol succinate 50 mg tablet extended release 24 hr 100 mg PO DAILY Label Comments: take 1 tablet by mouth once daily hydrochlorothiazide 25 mg tablet 25 mg PO DAILY fluoxetine 20 mg capsule 20 mg PO DAILY Label Comments: take 1 capsule by mouth once daily bupropion HCl [Wellbutrin XL] 150 mg Tablet Extended Release 24 Hr 150 mg PO DAILY Mucinex 1,200 mg Tablet Extended Release 12hr 1,200 mg PO PRN PRN (Reason: Congestion) Zinplava 25 mg/mL solution See Rx Instructions .ROUTE .COMPLEX Qty: 40 0RF Rx Instructions: Administer 10mg/kg as a single infusion over sixty minutes. Weight 64kgs pantoprazole 40 mg tablet,delayed release (DR/EC) See Rx Instructions .ROUTE .COMPLEX Qty: 60 2RF Dose Instruction: take 1 tablet by mouth twice a day FOR 8 WEEKS then 1 tablet once daily THEREAFTER Rx Instructions: take 1 tablet by mouth twice a day FOR 8 WEEKS then 1 tablet once daily THEREAFTER Primary Care Provider: Michael Hicks Referrals: Michael Hicks MD [Primary Care Provider] - Activity Restrictions/Additional Instructions: You are to take your blood pressure twice a day, morning and evening. If you have 2-3 readings of the top number which is the systolic, greater than 140 then you may start the lisinopril 10 mg daily. You need to continue to follow-up w ith your PCP. Disposition Disposition: Home, Self Care
[2022-07-20 13:20] LABS: Absolute Lymphocyte Count 2.11 X10^3/uL (0.83-4.51); Absolute Neutrophil Count 5.8 X10^3/uL (2.0-7.7); Basophil# 0.07 X10^3/uL; Basophil% 0.8 % (0-1); Eosinophil# 0.09 X10^3/uL; Hematocrit 38.2 % (37-47); Hemoglobin 13.2 g/dL (12.0-15.0); Lymphocyte # 2.11 X10^3/ul (0.83-4.51); Lymphocyte % 24.1 % (19-41); Mean Corp Hgb Conc 34.6 g/dL (32-36); Mean Corpuscular Hgb 31.7 pg (27.0-32.0); Mean Corpuscular Volume 91.8 fL (81-99); Mean Platelet Vol. 10.5 fl (6.2-12.0); Monocyte# 0.71 X10^3/uL; Monocyte% 8.1 % (0-10); NRBC Flagged by Analyzer 0 % (0-5); Neutrophil # 5.75 X10^3/uL (2.7-7.7); Neutrophil % 65.5 % (47-70); Platelet Count 224 K/mm3 (150-450); RBC Distribution Width CV 11.6 % (11.6-14.6); RBC Distribution Width SD 39.4 fl (35.1-43.9); Red Blood Count 4.16 M/mm3 (4.2-5.4); White Blood Count 8.8 K/mm3 (4.4-11.0)
[2022-07-20] MEDS: 0.9% Normal Saline 1,000 ML 999 ML IV (13:33)
[2022-07-20 13:35] VITALS: BP 110/66; BP 111/82; BP 119/73; PULSE 51; PULSE 57; PULSE 60
[2022-07-20 14:35] VITALS: BP 113/70; PULSE 44; RESP 16; O2SAT 97
[2022-07-20 14:42] LABS: Anion Gap 10 (5-15); BUN 16 mg/dL (7-18); BUN/Creat Ratio 19.3 RATIO (10-20); Chloride 107 mmol/L (98-107); Creatinine, Serum 0.83 mg/dL (0.55-1.02); EST Glomerular Filtration Rate 81 mL/min (>60); Est Glom Filt Rate - Afr Amer 98 mL/min (>60); Estimated Creatinine Clearance 81.07 ml/min; Glucose 115 mg/dL (74-106); Potassium 3.3 mmol/L (3.5-5.1); Sodium Level 142 mmol/L (136-145); Troponin-I HS (w/2H Reflex) 5 pg/mL (3.0-54.0)
[2022-07-20 15:12] LABS: Reflex Troponin-HS? (from REC) Y
[2022-07-20 15:14] VITALS: BP 121/67; PULSE 61; RESP 15; O2SAT 97
== END 2022-07-20 15:23 | disposition home or self-care (01) ==
PROVIDERS: Nurse Practitioner; Emergency Provider Emergency Medicine; PCP Family Medicine; Visit Provider Emergency Medicine
DX: R00.1 Bradycardia, unspecified (principal); R00.2 Palpitations; R42 Dizziness and giddiness; I10 Essential (primary) hypertension; F32.A Depression, unspecified; F41.9 Anxiety disorder, unspecified; F17.210 Nicotine dependence, cigarettes, uncomplicated; Z79.899 Other long term (current) drug therapy
CPT/HCPCS: 71045; 80048; 84484; 85025; 93005; 96360; 96361; 99285; J7030; A4216

== ENCOUNTER → 2022-11-26 | Outpatient (CLI) | payer OTHER, SELFPAY | END | disposition home or self-care (01) | LOC: LABSPEC 15:18 | PROVIDERS: PCP Family Medicine; Visit Provider Nurse Practitioner Adult Health | DX: R19.7 Diarrhea, unspecified (principal); Z86.19 Personal history of other infectious and parasitic diseases | CPT/HCPCS: 87493 ==

== ENCOUNTER → 2022-12-29 | Outpatient (CLI) | payer OTHER, SELFPAY ==
[2022-12-30 17:07] LABS: Endomysial Antibody IgA Negative (Negative)
[2022-12-31 08:14] LABS: Immunoglobulin A 197 mg/dL (87-352); t-Transglutaminase IgA <2 U/mL (0-3)
== END | disposition home or self-care (01) ==
LOC: LAB 07:59
PROVIDERS: PCP Family Medicine; Visit Provider Nurse Practitioner Adult Health
DX: R19.7 Diarrhea, unspecified (principal)
CPT/HCPCS: 36415; 82784; 83516; 86255

== ENCOUNTER → 2023-12-16 | Outpatient (CLI) | payer OTHER, SELFPAY ==
[2023-12-16 10:21] LABS: Absolute Lymphocyte Count 1.99 X10^3/uL (0.83-4.51); Absolute Neutrophil Count 6.8 X10^3/uL (2.0-7.7); Basophil# 0.07 X10^3/uL; Basophil% 0.7 % (0-1); Eosinophil# 0.15 X10^3/uL; Eosinophils% 1.5 % (0-5); Hematocrit 37.5 % (37-47); Hemoglobin 12.5 g/dL (12.0-15.0); Lymphocyte # 1.99 X10^3/ul (0.83-4.51); Lymphocyte % 20.5 % (19-41); Mean Corp Hgb Conc 33.3 g/dL (32-36); Mean Corpuscular Hgb 31.9 pg (27.0-32.0); Mean Corpuscular Volume 95.7 fL (81-99); Mean Platelet Vol. 10.1 fl (6.2-12.0); Monocyte# 0.69 X10^3/uL; Monocyte% 7.1 % (0-10); NRBC Flagged by Analyzer 0 % (0-5); Neutrophil # 6.79 X10^3/uL (2.7-7.7); Neutrophil % 69.8 % (47-70); Platelet Count 258 K/mm3 (150-450); RBC Distribution Width CV 12.9 % (11.6-14.6); Red Blood Count 3.92 M/mm3 (4.2-5.4); White Blood Count 9.7 K/mm3 (4.4-11.0)
[2023-12-16 10:57] LABS: ALB/GLOB Ratio 1.2 RATIO (0.9-2.4); AST(SGOT) 14 U/L (15-37); Alanine Aminotransfer ALT/SGPT 20 U/L (13-56); Albumin, Serum 3.7 g/dL (3.2-5.0); Alkaline Phosphatase 48 U/L (45-117); Anion Gap 2 (5-15); BUN 12 mg/dL (7-18); Chloride 112 mmol/L (98-107); Creatinine, Serum 0.75 mg/dL (0.55-1.02); EST Glomerular Filtration Rate 91 mL/min (>60); Est Glom Filt Rate - Afr Amer 110 mL/min (>60); Globulin 3.2 g/dL (2.2-4.2); Glucose 90 mg/dL (74-106); Potassium 4.1 mmol/L (3.5-5.1); Protein, Total 6.9 g/dL (6.4-8.2); Sodium Level 141 mmol/L (136-145)
[2023-12-18 15:08] LABS: Anti-Nuclear Antibody Test Negative (.); Anti-dsDNA Ab <1 IU/mL (0-9)
== END | disposition home or self-care (01) ==
LOC: MTLAB 09:00
PROVIDERS: PCP Family Medicine; Referring Provider Dermatology; Visit Provider Dermatology
DX: L56.4 Polymorphous light eruption (principal); X32.XXXA Exposure to sunlight, initial encounter
CPT/HCPCS: 36415; 80053; 85025; 86038; 86225

== ENCOUNTER 2024-01-17 23:39 | Emergency (ER) | payer OTHER, SELFPAY ==
[2024-01-17 23:40] VITALS: BP 99/72; PULSE 63; RESP 16; TEMP 35.5; O2SAT 100; BMI 22.4
[2024-01-18] MEDS: Diphenoxylate/Atrop 1 Tablet PO (00:49)
[2024-01-18] MEDS: 0.9% Normal Saline (1000mL) 1,000 ML 999 ML IV ×2 (00:49→03:38)
[2024-01-18] MEDS: Morphine 4 MG/ML Syringe IV (00:49)
[2024-01-18] MEDS: Ondansetron 4 MG/2 ML Vial IV (00:49)
[2024-01-18 00:51] LABS: Absolute Lymphocyte Count 6.19 X10^3/uL (0.83-4.51); Absolute Neutrophil Count 6.7 X10^3/uL (2.0-7.7); Basophil# 0.08 X10^3/uL; Basophil% 0.6 % (0-1); Eosinophils% 1.4 % (0-5); Hematocrit 41.8 % (37-47); Hemoglobin 14.1 g/dL (12.0-15.0); Lymphocyte # 6.19 X10^3/ul (0.83-4.51); Lymphocyte % 43.7 % (19-41); Mean Corp Hgb Conc 33.7 g/dL (32-36); Mean Corpuscular Hgb 31.3 pg (27.0-32.0); Mean Corpuscular Volume 92.7 fL (81-99); Mean Platelet Vol. 10.7 fl (6.2-12.0); Monocyte# 0.91 X10^3/uL; Monocyte% 6.4 % (0-10); NRBC Flagged by Analyzer 0 % (0-5); Neutrophil # 6.72 X10^3/uL (2.7-7.7); Neutrophil % 47.5 % (47-70); POSITIVE DIFFERENTIAL YES; POSITIVE MORPHOLOGY YES; Platelet Count 267 K/mm3 (150-450); RBC Distribution Width CV 12.2 % (11.6-14.6); Red Blood Count 4.51 M/mm3 (4.2-5.4); White Blood Count 14.2 K/mm3 (4.4-11.0)
[2024-01-18 00:58] VITALS: BP 141/81; RESP 18; O2SAT 99
[2024-01-18 01:11] LABS: AST(SGOT) 16 U/L (15-37); Alanine Aminotransfer ALT/SGPT 19 U/L (13-56); Albumin, Serum 4.1 g/dL (3.2-5.0); Alkaline Phosphatase 58 U/L (45-117); Anion Gap 7 (5-15); BUN 19 mg/dL (7-18); BUN/Creat Ratio 19.6 RATIO (10-20); Bilirubin, Direct 0.14 mg/dL (0.00-0.30); Calcium,Total 9.8 mg/dL (8.5-10.1); Chloride 108 mmol/L (98-107); Creatinine, Serum 0.97 mg/dL (0.55-1.02); EST Glomerular Filtration Rate 67 mL/min (>60); Est Glom Filt Rate - Afr Amer 81 mL/min (>60); Estimated Creatinine Clearance 68.68 ml/min; Globulin 3.3 g/dL (2.2-4.2); Glucose 159 mg/dL (74-106); Lipase 54 U/L (13-75); Potassium 3.3 mmol/L (3.5-5.1); Protein, Total 7.4 g/dL (6.4-8.2); Sodium Level 139 mmol/L (136-145)
[2024-01-18] MEDS: HYDROmorphone 1 MG/ML Syringe IV ×2 (02:11→03:38)
[2024-01-18 02:24] LABS: Differential Indicated SCAN CRITERIA MET
[2024-01-18 02:25] LABS: Differential Comment SCANNED
--- NOTE | 2024-01-18 02:58 | CT_ITS ---
EXAM: CT Abdomen And Pelvis W/ Contrast Injection HISTORY: abd pain TECHNIQUE: Routine protocol CT abdomen pelvis. IV Contrast: IV 100mL Isovue-300 . Oral Contrast: without. Sagittal and coronal images were reconstructed. RADIATION DOSAGE (If Supplied By Facility): CTDIvol = ( 10.72 ) mGy, DLP = ( 390.15 ) mGycm Individualized dose optimization techniques were used for this CT. COMPARISON: CT abdomen and pelvis 04/09/2012. LIMITATIONS: None. FINDINGS: LOWER CHEST: Lung bases are clear. LIVER: 2 small cysts identified, which were not present on the prior. GALLBLADDER/BILE DUCTS: Unremarkable. PANCREAS: Unremarkable. SPLEEN: Unremarkable. ADRENAL GLANDS: Unremarkable. KIDNEYS / URETERS: A few small cysts in the kidneys. Small calculus in the left kidney. No hydronephrosis. BOWEL / MESENTERY: Colonic wall thickening mid transverse colon to the rectosigmoid colon. Mild adjacent stranding. No bowel obstruction. APPENDIX: Identified and normal. No evidence of acute appendicitis. PERITONEUM: No free air. Small amount of free fluid in the pelvis. VESSELS: Abdominal aorta is normal caliber. RETROPERITONEUM: Unremarkable. REPRODUCTIVE ORGANS: Unremarkable. BLADDER: Unremarkable. ABDOMINAL WALL: Unremarkable. BONES: No acute abnormality. OTHER: None. CT/Abdomen/Pelvis W IV Cont ONLY IMPRESSION: Findings consistent with acute colitis mid transverse through the rectosigmoid colon also likely inflammatory or infectious etiology. Electronically Signed: Lizzy Ashton MD at 3:56 EDT ,
[2024-01-18 03:00] VITALS: BP 136/84; PULSE 69; RESP 18; O2SAT 98
--- NOTE | 2024-01-18 04:27 | EX.ED.DYSGE1 ---
HPI History of Present Illness Chief Complaint: Nausea/Vomiting/Diarrhea Informant: patient and spouse/S.O. Narrative Narrative: Patient is a 43-year-old female with past medical history of hypertension as well as recurrent or prolonged cluster difficile infection. She states that she was doing well and then this evening broke out into a spontaneous sweat had bouts of vomiting and multiple episodes of loose stool/diarrhea. She denies any blood or discoloration to either. She denies any history of ulcerative colitis or Crohn's disease. She denies any known sick contacts. She states that she traveled outside the country roughly 5 weeks ago. Otherwise she denies any recent antibiotic use or exposure to livestock. She states that her vomiting has spontaneously improved but she remains nauseous and has had persistent diarrhea and as well as worsening abdominal pain and secondary to this presents for evaluation [facility] Medical History Alcohol use Anemia Anxiety Back pain C. difficile diarrhea Depression Essential (primary) hypertension Fibromyalgia GERD (gastroesophageal reflux disease) History of epidural anesthesia History of IBS History of renal disease History of steroid therapy Injury of back Injury of head and neck Kidney stones Marijuana use Medical cannabis use Migraine headache Restless leg syndrome Rheumatoid arthritis Smoker Wears glasses Home Medications fluoxetine 20 mg capsule 20 mg PO DAILY 12/04/21 [History Last Taken Unknown] acetaminophen 325 mg capsule 650 mg PO Q6H PRN pain 07/25/22 [History Last Taken Unknown] pediatric multivitamin no.209 (Children's Multivitamin Gummy chewable tablet) 1 tab PO DAILY 07/25/22 [History Last Taken Unknown] sumatriptan succinate 50 mg tablet 50 mg PO ONCE PRN migraine headache 07/25/22 [History Last Taken Unknown] adapalene 0.1 %-benzoyl peroxide 2.5 % topical gel with pump 1 applic topical QHS PRN face cream 07/29/22 [History Last Taken Unknown] cetirizine 5 mg-pseudoephedrine ER 120 mg tablet,extended release,12hr (Allergy Relief-D (cetirizine)) 1 tab PO DAILY 07/29/22 [History Last Taken Unknown] hydroxychloroquine 200 mg tablet 200 mg PO DAILY 07/29/22 [History Last Taken Unknown] triamcinolone acetonide 0.1 % topical cream 1 applic topical BID PRN rash 07/29/22 [History Last Taken Unknown] lisinopril 10 mg tablet 10 mg PO DAILY 01/17/24 [History Last Taken Unknown] diphenoxylate-atropine 2.5 mg-0.025 mg tablet (Lomotil) 1 tab PO 4X/DAY PRN diarrhea 5 days #20 tabs 01/18/24 [Rx Last Taken Unknown] ondansetron 4 mg disintegrating tablet 4 mg PO TID PRN nausea and vomiting #21 tabs 01/18/24 [Rx Last Taken Unknown] oxycodone-acetaminophen 5 mg-325 mg tablet (Percocet) 1 tab PO Q6H PRN pain 3 days #12 tabs 01/18/24 [Rx Last Taken Unknown] Allergy/AdvReac Type Severity Reaction Status Date / Time No Known Allergies Allergy Verified 01/17/24 23:44 Family History Mother Psoriasis Arthritis Father Hypertension Diabetes Cancer bile duct Brother Crohn's disease Myocardial infarction x2 in last month Hypertension Grandmother , 48 [place] CAD (coronary artery disease) Myocardial infarction Daughter Crohn's disease Grandfather Cancer esophagus Grandmother Colon cancer Surgical History History of carpal tunnel release of both wrists (~2020) History of myringotomy Hx of adenoidectomy Hx of tubal ligation Social History Smoking Status: Current every day smoker tobacco type: cigarettes and e-cigarettes alcohol intake: current alcohol intake frequency: holidays/special occasions only substance use type: marijuana caffeine: Yes (a few days a week coffee) ROS ROS ED Constitutional Constitutional ED: Denies chills or fever(s) ENT ENT ED: Denies sore throat Cardiovascular Cardiovascular: Denies chest pain or palpitations Respiratory/Chest Respiratory/Chest: Denies cough or dyspnea Gastrointestinal Gastrointestinal: Reports abdominal pain, diarrhea, nausea and vomiting Genitourinary Genitourinary ED: Denies dysuria Musculoskeletal Musculoskeletal: Reports myalgias Integumentary Denies rash Neurologic Neurologic: Denies headache(s) Hematologic/Lymphatic Hematologic/Lymphatic: Denies easy bleeding or easy bruising EXAM Physical Exam Const Vital Signs: 01/17/24 23:40 01/18/24 00:58 01/18/24 03:00 Temperature 95.9 F L Temperature Source Temporal Pulse Rate 63 69 Respiratory Rate 16 18 18 Blood Pressure 99/72 141/81 H 136/84 H Blood Pressure Mean 81 101 101 Pulse Ox 100 99 98 Oxygen Delivery Method Room Air Room Air 01/18/24 04:54 Temperature 97.9 F Temperature Source Pulse Rate 70 Respiratory Rate 18 Blood Pressure 141/89 H Blood Pressure Mean 106 Pulse Ox 98 Oxygen Delivery Method Positive well nourished and well developed General Appearance ED: well developed; Negative for pallor HEENT Reports dry mucous membranes HEENT Narrative: Mucous membranes are dry and tacky but show no secondary changes to suggest infection Mouth ED: Yes dry mucous membranes Mouth: dry mucous membranes Eyes PERRL and EOMs intact bilaterally General Eye ED: Negative for pale conjunctiva or scleral icterus Neck supple Neck Narrative: No nuchal rigidity or meningeal signs noted Resp normal respiratory effort and clear to auscultation bilaterally Cardio regular rate and regular rhythm Rate: other Other Details: Radial and carotid pulses are equal and symmetric GI non-distended GI Narrative: Abdomen is soft and nondistended with hyperactive bowel sounds. There is diffuse pain with palpation without voluntary guarding or rigidity or pulsatile mass Auscultation: hyperactive bowel sounds Palpation: soft Extremity normal to inspection Neuro oriented x3, CN's II-XII intact bilaterally and no sensory deficits noted Sensorium / Orientation: alert Motor Exam: strength 5/5 throughout Psych mental status grossly normal Skin no rashes or lesions noted and no wounds Skin Narrative: Skin turgor is slightly increased General Skin Exam: Negative for jaundice or pallor MDM MDM MDM Narrative Medical decision making narrative: Patient arrived to the ER with stable vitals and a soft nonsurgical abdomen. History is most concerning for viral stomach infection such as [place] or rotavirus. However with concern potential biliary colic versus acute cholecystitis versus pancreatitis as well as potential for infectious diarrhea such as colostrum difficile or E. coli basic lab work was obtained as well as a stool sample. Patient's white count was elevated at 14 but otherwise labs showed no clinically significant findings. With her persistent pain and elevated white count a CT scan was then obtained which revealed diffuse inflammation consistent with colitis. There is no perforation or abscess or obstruction and based on the patient's history and physical exam this is most likely viral in nature. Therefore at this time with her history of C. difficile that was prolonged in the past and the fact this is most likely viral I will hold off on antibiotics at this time while stool studies are pending. But as vitals are stable and there is no perforation or obstruction or abscess and her symptoms have improved with treatment she can be discharged home with symptomatic care History & Record Review Discussion w/independent historian: Patient and Significant other Lab Data Attestation: I reviewed the patient's lab results. Labs: Laboratory Results - last 24 hr 01/18/24 00:45 WBC 14.2 H RBC 4.51 Hgb 14.1 Hct 41.8 MCV 92.7 MCH 31.3 MCHC 33.7 RDW Std Deviation 42.0 RDW Coeff of Re 12.2 Plt Count 267 MPV 10.7 Immature Gran % (Auto) 0.400 Neut % (Auto) 47.5 Lymph % (Auto) 43.7 H Hopkins % (Auto) 6.4 Eos % (Auto) 1.4 Baso % (Auto) 0.6 Absolute Neuts (auto) 6.7 Absolute Lymphs (auto) 6.19 H Nucleated RBC % 0 Differential Comment SCANNED Sodium 139 Potassium 3.3 L Chloride 108 H Carbon Dioxide 24.0 Anion Gap 7 BUN 19 H Creatinine 0.97 Estim Creat Clear Calc 68.68 Est GFR (MDRD) Af Amer 81 Est GFR (MDRD) Non-Af 67 BUN/Creatinine Ratio 19.6 Glucose 159 H Calcium 9.8 Total Bilirubin 0.40 Direct Bilirubin 0.14 AST 16 ALT 19 Alkaline Phosphatase 58 Total Protein 7.4 Albumin 4.1 Globulin 3.3 Lipase 54 Radiography Diagnostic Testing: Clinical Impression(s) from Imaging Studies Abdomen/Pelvis CT 01/18/24 02:58 IMPRESSION: Findings consistent with acute colitis mid transverse through the rectosigmoid colon also likely inflammatory or infectious etiology. Electronically Signed: Lizzy Ashton MD at 3:56 EDT , Discharge Plan Triage Chief Complaint: Nausea/Vomiting/Diarrhea ED Provider: Orlando Gutierres Dx/Rx/DC Orders Clinical Impression: Nausea vomiting and diarrhea, Colitis, Fibromyalgia, Essential (primary) hypertension Instructions: ED Understanding Colitis, ED Gastroenteritis, Viral (Adult) Prescriptions: New oxycodone-acetaminophen [Percocet] 5-325 mg tablet 1 tab PO Q6H PRN (Reason: pain) 3 Days Qty: 12 0RF ondansetron 4 mg tablet,disintegrating 4 mg PO TID PRN (Reason: nausea and vomiting) Qty: 21 0RF diphenoxylate-atropine [Lomotil] 2.5-0.025 mg tablet 1 tab PO 4X/DAY PRN (Reason: diarrhea) 5 Days Qty: 20 0RF No Action sumatriptan succinate 50 mg tablet 50 mg PO ONCE PRN (Reason: migraine headache) acetaminophen 325 mg capsule 650 mg PO Q6H PRN (Reason: pain) Children's Multivitamin Gummy Tablet,Chewable 1 tab PO DAILY adapalene-benzoyl peroxide 0.1-2.5 % gel with pump 1 applic topical QHS PRN (Reason: face cream) cetirizine-pseudoephedrine [Allergy Relief-D (cetirizine)] 5-120 mg tablet extended release 12 hr 1 tab PO DAILY hydroxychloroquine 200 mg tablet 200 mg PO DAILY Rx Instructions: only takes in the summer for sun allergy triamcinolone acetonide 0.1 % cream 1 applic topical BID PRN (Reason: rash) Patient Comments: APPLY A THIN LAYER TO THE AFFECTED AREAS OF THE BODY TWICE A DAY ... (REFER TO PRESCRIPTION NOTES). fluoxetine 20 mg capsule 20 mg PO DAILY Patient Comments: take 1 capsule by mouth once daily lisinopril 10 mg tablet 10 mg PO DAILY Primary Care Provider: Michael Hicks Referrals: Michael Hicks MD [Primary Care Provider] - Disposition Disposition: Home, Self Care Discharge Date/Time: 01/18/24 04:55
[2024-01-18] MEDS: Oxycodone/Apap 5/325 Tablet PO (04:48)
[2024-01-18 04:54] VITALS: BP 141/89; PULSE 70; RESP 18; TEMP 36.6; O2SAT 98
== END 2024-01-18 04:55 | disposition home or self-care (01) ==
PROVIDERS: Emergency Provider Emergency Medicine; PCP Family Medicine; Visit Provider Emergency Medicine
DX: K52.9 Noninfective gastroenteritis and colitis, unspecified (principal); F12.90 Cannabis use, unspecified, uncomplicated; F17.210 Nicotine dependence, cigarettes, uncomplicated; F17.290 Nicotine dependence, other tobacco product, uncomplicated; M79.7 Fibromyalgia; I10 Essential (primary) hypertension; Z79.899 Other long term (current) drug therapy
CPT/HCPCS: 74177; 80048; 80076; 83690; 85025; 87493; 87506; 96361; 96374; 96375; 96376; 99284; J7030; Q9967; A4216; J2405

== ENCOUNTER → 2024-02-02 | Outpatient (CLI) | payer OTHER, SELFPAY ==
[2024-02-02 16:22] LABS: Erythrocyte Sedimentation Rate 4 mm/hr (0-30)
[2024-02-02 16:59] LABS: CRP < 2.90 mg/L (0.0-3.0); Free T3 2.4 pg/mL (2.18-3.98); Iron Binding Capacity,Total 314 ug/dL (250-450); Thyroid Stim Hormone (TSH) 1.12 uIU/mL (0.358-3.74)
[2024-02-02 17:10] LABS: Vitamin B12 > 2000 pg/mL (211-911)
[2024-02-08 22:07] LABS: Anti-Centromere B Ab <0.2 AI (0.0-0.9); Anti-Chromatin <0.2 AI (0.0-0.9); Anti-Jo <0.2 AI (0.0-0.9); Anti-Scleroderma-70 AB <0.2 AI (0.0-0.9); Anti-dsDNA Ab <1 IU/mL (0-9); Beef <0.10 kU/L (Class 0); Chocolate <0.10 kU/L (Class 0); Codfish <0.10 kU/L (Class 0); Corn <0.10 kU/L (Class 0); Egg, Whole <0.10 kU/L (Class 0); Milk (Cow) <0.10 kU/L (Class 0); Mussels <0.10 kU/L (Class 0); Peanut <0.10 kU/L (Class 0); Pork <0.10 kU/L (Class 0); RNP Ab <0.2 AI (0.0-0.9); SJOGREN'S Anti-SS-A test < 0.2 AI (0.0-0.9); SJOGREN'S Anti-SS-B test < 0.2 AI (0.0-0.9); Salmon <0.10 kU/L (Class 0); Shrimp <0.10 kU/L (Class 0); Smith Ab <0.2 AI (0.0-0.9); Soybean <0.10 kU/L (Class 0); Tuna <0.10 kU/L (Class 0); Wheat <0.10 kU/L (Class 0)
[2024-02-10 13:07] LABS: ACCA 17 units (0-90); ALCA 22 units (0-60); AMCA 8 units (0-100); Albumin 4.1 g/dL (2.9-4.4); Alpha-1-Globulins 0.3 g/dL (0.0-0.4); Alpha-2-Globulins 0.6 g/dL (0.4-1.0); Anti-Parietal Cell AB, QN 1.4 Units (0.0-20.0); Chromogranin A 76.8 ng/mL (0.0-101.8); Cytoplasmic Ab (C-ANCA) <1:20 titer (Neg:<1:20); Dopamine, Pl <30 pg/mL (0-48); Endomysial Antibody IgA Negative (Negative); Epinephrine, Pl 31 pg/mL (0-62); Gamma Globulin 0.8 g/dL (0.4-1.8); Gastrin, Serum 21 pg/mL (0-115); Immunoglobulin A 181 mg/dL (87-352); Immunoglobulin E 27 IU/mL (6-495); Immunoglobulin G 795 mg/dL (586-1602); Immunoglobulin M 234 mg/dL (26-217); Intrinsic Factor Ab 1.3 AU/mL (0.0-1.1); Norepinephrine, Pl 216 pg/mL (0-874); PROEL- TOTAL PROTEIN 6.7 g/dL (6.0-8.5); Perinuclear Ab (P-ANCA) <1:20 titer (Neg:<1:20); gASCA 25 units (0-50); t-Transglutaminase IgA <2 U/mL (0-3)
== END | disposition home or self-care (01) ==
PROVIDERS: PCP Family Medicine; Referring Provider Internal Medicine Gastroenterology; Visit Provider Internal Medicine Gastroenterology
DX: I10 Essential (primary) hypertension (principal); K21.9 Gastro-esophageal reflux disease without esophagitis; R19.7 Diarrhea, unspecified
CPT/HCPCS: 36415; 82384; 82607; 82652; 82784; 82785; 82941; 83516; 83550; 84165; 84439; 84443; 84481; 85652; 86003; 86005; 86036; 86140; 86225; 86235; 86255; 86256; 86316; 86334; 86340; 86671

== ENCOUNTER → 2024-02-05 | Outpatient (CLI) | payer OTHER, SELFPAY ==
[2024-02-09 19:06] LABS: VMA, 24UR 2.1 mg/24 hr (0.0-7.5); VMA, UR 2.2 mg/L (Undefined)
[2024-02-10 00:07] LABS: Giardia Lamblia, Stool EIA Negative (Negative); Pancreatic Elastase, Fecal 285 (>200)
== END | disposition home or self-care (01) ==
PROVIDERS: PCP Family Medicine; Referring Provider Internal Medicine Gastroenterology; Visit Provider Internal Medicine Gastroenterology
DX: K58.9 Irritable bowel syndrome, unspecified (principal); K21.9 Gastro-esophageal reflux disease without esophagitis; I10 Essential (primary) hypertension; R19.7 Diarrhea, unspecified
CPT/HCPCS: 81050; 82653; 82705; 83630; 84585; 87177; 87209; 87329; 87506

== ENCOUNTER → 2024-02-06 | Outpatient (CLI) | payer OTHER, SELFPAY ==
[2024-02-11 17:07] LABS: Dopamine, 24Ur 225 ug/24 hr (0-510); Dopamine, UR 225 ug/L (Undefined); Epinephrine, 24Ur 6 ug/24 hr (0-20); Epinephrine, Ur 6 ug/L (Undefined); Norepinephrine, 24Ur 32 ug/24 hr (0-135); Norepinephrine, Ur 32 ug/L (Undefined)
== END | disposition home or self-care (01) ==
LOC: LAB 11:16
PROVIDERS: PCP Family Medicine; Referring Provider Internal Medicine Gastroenterology; Visit Provider Internal Medicine Gastroenterology
DX: R10.9 Unspecified abdominal pain (principal); R19.7 Diarrhea, unspecified
CPT/HCPCS: 81050; 82384

== ENCOUNTER 2024-02-10 05:38 | Day surgery (SDC) | payer OTHER, SELFPAY ==
--- NOTE | 2024-02-10 06:30 | IMM_PTH ---
PATIENT: JUANA PAIGE LOC: [facility] U#:[id number] AGE/SX: 43/F ROOM: RE02/10/[address]: Dr. Pranay Saenz DO : 1980 BED: DIS: 02/10/2024 SPEC #: [id number] RECD: 02/10/24 12:06 STATUS: DEEPAK PARVIN #: [id number] PEPE: 02/10/24 06:[address]: Pranay Saenz DEPT: IMMUNOHISTOCHEMISTRY RECD BY: Carlyle Alaniz ENTERED: 02/10/24 12:06 SP TYPE: IMMUNO OTHR DR: Dr. Michael Hicks MD Tissues: B - Stomach, NOS Procedures: H Pylori (initial) PHYSICIAN & INSTITUTION [place] [id number] SPECIMEN INFORMATION: Tissue Source: B- Gastric body biopsy Clinical Info: GERD, Diarrhea, C-DIFF colitis Specimen Number: [id number] CPT code: 01359 METHODOLOGY: Deparaffinized sections of prefer/formalin-fixed tissue or PAP/DQ stained slides are incubated with monoclonal/polyclonal antibodies/oligonucleotide probes. Localization is made via biotin free immunoperoxidase method. Appropriate controls are performed and reacted as expected. Results on target cell population are indicated in the following table: RESULTS: ANTIBODY / CLONE RESULT Block B H Pylori (polyclonal) negative These tests were developed and their performance characteristics determined by [facility]. They may not have been cleared or approved by the U.S. Food and Drug Administration. The FDA has determined that such clearance or approval is not necessary. The above immunohistochemical/dualISH markers are ordered and reviewed by the Pathologist. INTERPRETATION: B. Gastric body, biopsy: Negative for Helicobacter pylori organisms. HECTOR/ 02/11/2024
--- NOTE | 2024-02-10 06:30 | EGD_PTH ---
PATIENT: JUANA PAIGE LOC: [facility] U#:[id number] AGE/SX: 43/F ROOM: RE02/10/[address]: Dr. Pranay Saenz DO : 1980 BED: DIS: 02/10/2024 SPEC #: [id number] RECD: 02/10/24 10:43 STATUS: DEEPAK MELENDREZ #: [id number] PEPE: 02/10/24 06:[address]: Pranay Saenz DEPT: SURGICAL PATHOLOGY RECD BY: Ysabel Maxwell ENTERED: 02/10/24 11:42 SP TYPE: EGD BIOPSY JULES DR: Dr. Michael Hicks MD Tissues: A - Duodenum, NOS B - Gastric mucous membrane C - Ileum, NOS D - COLON BIOPSY Procedures: Surgery Specimen Level IV HEADER OPERATION: Colonoscopy with biopsies, EGD with biopsies PRE-OP DIAGNOSIS: GERD, Diarrhea, D-DIFF colitis TISSUE SUBMITTED: A- Duodenum biopsy, B- Gastric body biopsy, C- Terminal ileum biopsy, D- Random colon biopsies MICROSCOPIC DIAGNOSIS A. Duodenum, biopsy: Fragments of duodenal mucosa, no pathologic diagnosis. B. Gastric body, biopsy: Mild gastritis. See microscopic description and comment. C. Terminal ileum, biopsy: Fragments of small intestinal mucosa, no pathologic diagnosis. D. Colon, random biopsy: Fragments of colonic mucosa, no pathologic diagnosis. HECTOR/ 02/11/2024 COMMENT B. The results of immunohistochemistry for Helicobacter pylori will be reported separately ([id number]). MICROSCOPIC DESCRIPTION Slides are reviewed. B. The specimen shows fragments of gastric mucosa with chronic inflammatory cell infiltrates in the lamina propria consisting of lymphocytes and plasma cells, consistent with mild chronic gastritis. GROSS DESCRIPTION A. Received in fixative is one container labeled with the patient's name and designated Duodenum biopsy. The specimen consists of multiple irregular fragments of light lopez soft tissue that in aggregate measure 1.0 x 0.4 x 0.1 cm. The specimen is totally submitted in one cassette. B. Received in fixative is one container labeled with the patient's name and designated Gastric body biopsy. The specimen consists of multiple irregular fragments of light lopez soft tissue that in aggregate measure 0.5 x 0.5 x 0.1 cm. The specimen is totally submitted in one cassette. C. Received in fixative is one container labeled with the patient's name and designated Terminal ileum biopsy. The specimen consists of two irregular fragments of light lopez soft tissue that in aggregate measure 0.6 x 0.3 x 0.1 cm. The specimen is totally submitted in one cassette. D. Received in fixative is one container labeled with the patient's name and designated Random colon biopsy. The specimen consists of multiple irregular fragments of light lopez soft tissue that in aggregate measure 1.0 x 1.0 x 0.1 cm. The specimen is totally submitted in one cassette. SJ/ 02/10/2024 TC:3 CPT:09141c7
--- NOTE | 2024-02-10 06:50 | HP.PCM_ITS ---
History and Physical Date of Admission: 02/10/24 f/u C. difficile colitis Details: JUANA PAIGE, is a 43 F who presents to the office today for ROS Const Constitutional: Positive for fatigue, frequent falls and weight change Gastro GI: Positive for abdominal pain, bloating, change in bowel habits, constipation, diarrhea, excessive flatus, Blood in stool and nausea/dyspepsia Musc Musculoskeletal: Positive for joint pain, back pain, muscle cramps, stiffness, Arthritis, sciatica and leg pain at night Skin Skin: Positive for dry skin and itchy eyes Neuro Neurology: Positive for frequent falls Psych Psychiatric: Positive for anxiety and Positive for depression Endo Endocrine: Positive for fatigue and weight change Aller/Imm Allergy/Immunologic: Positive for itchy eyes [place]/Lymp Hematologic/Lymphatic: Positive for easy bruising Exam Const General: cooperative, healthy appearing, comfortable, well developed and well groomed Eyes General: appearance normal, both eyes and all related structures Resp Effort & Inspection: normal respiratory effort Quality Reporting Tobacco Screening ([facility] 138) Smoking Status: Current every day smoker Assessment and Plan Assessment and Plan (1) Essential (primary) hypertension: Status: Chronic (2) GERD (gastroesophageal reflux disease): Status: Chronic (3) Diarrhea: Status: Acute Plan: It is sounding like she may have inflammatory bowel disease versus IBS with d iarrhea. What is concerning is the weight loss that she is experiencing. Also different diagnosis is exocrine pancreatic insufficiency celiac disease autoimmune enteritis. She will undergo biochemical testing. This less likely but also differential diagnosis would be carcinoid syndrome and less likely pheochromocytoma or acute intermittent porphyria. She will undergo urine testing. We will repeat her upper and lower endoscopy as it has been 3 years with biopsies and possibly an empiric treatment with steroids pending stool for Giardia (4) C. difficile colitis: Status: Acute Plan: Recurrent C diff infection, most recently treated with IV Zinplava plus PO vancomycin Test for C. difficile Refill of vancomycin to have on hand to use when she takes other antibiotics Orders: Orders Celiac Disease Profile Today I10 - Essential (primary) hypertension, K21.9 - Gastro-esophageal reflux disease without esophagitis, R19.7 - Diarrhea, unspecified Iron Binding Capacity,Total Today I10 - Essential (primary) hypertension, K21.9 - Gastro-esophageal reflux disease without esophagitis, R19.7 - Diarrhea, unspecified MARCIN + Protein Elect, Serum Today I10 - Essential (primary) hypertension, K21.9 - Gastro-esophageal reflux disease without esophagitis, R19.7 - Diarrhea, unspecified CRP Today I10 - Essential (primary) hypertension, K21.9 - Gastro-esophageal reflux disease without esophagitis, R19.7 - Diarrhea, unspecified Erythrocyte Sed Rate Today I10 - Essential (primary) hypertension, K21.9 - Gastro-esophageal reflux disease without esophagitis, R19.7 - Diarrhea, unspecified Immunoglobulin E Today I10 - Essential (primary) hypertension, K21.9 - Gastro- esophageal reflux disease without esophagitis, R19.7 - Diarrhea, unspecified Allergen, Food Profile 14 Today I10 - Essential (primary) hypertension, K21.9 - Gastro-esophageal reflux disease without esophagitis, R19.7 - Diarrhea, unspecified Pancreatic Elastase, Fecal Today I10 - Essential (primary) hypertension, K21.9 - Gastro-esophageal reflux disease without esophagitis, R19.7 - Diarrhea, unspecified Ova and Parasites [id number] Today I10 - Essential (primary) hypertension, K21.9 - Gastro-esophageal reflux disease without esophagitis, K58.9 - Irritable bowel syndrome without diarrhea, R19.7 - Diarrhea, unspecified Stool Lactoferrin/WBC Today I10 - Essential (primary) hypertension, K21.9 - Gastro-esophageal reflux disease without esophagitis, K58.9 - Irritable bowel syndrome without diarrhea, R19.7 - Diarrhea, unspecified Giardia Lamblia, Stool EIA Today I10 - Essential (primary) hypertension, K21.9 - Gastro-esophageal reflux disease without esophagitis, R19.7 - Diarrhea, unspecified SURINDER Comprehensive Panel Today I10 - Essential (primary) hypertension, K21.9 - Gastro-esophageal reflux disease without esophagitis, R19.7 - Diarrhea, unspecified ENTERIC PATHOGEN PANEL STOOL Today I10 - Essential (primary) hypertension, K21.9 - Gastro-esophageal reflux disease without esophagitis, K58.9 - Irritable bowel syndrome without diarrhea, R19.7 - Diarrhea, unspecified IBD Expanded Profile Today I10 - Essential (primary) hypertension, K21.9 - Gastro-esophageal reflux disease without esophagitis, R19.7 - Diarrhea, unspecified Fecal Fat, Qualitative Today I10 - Essential (primary) hypertension, K21.9 - Gastro-esophageal reflux disease without esophagitis, R19.7 - Diarrhea, unspecified Vitamin D 1,25-Dihydroxy Today I10 - Essential (primary) hypertension, K21.9 - Gastro-esophageal reflux disease without esophagitis, R19.7 - Diarrhea, unspecified Vitamin B12 Today I10 - Essential (primary) hypertension, K21.9 - Gastro- esophageal reflux disease without esophagitis, R19.7 - Diarrhea, unspecified Free T3 Today I10 - Essential (primary) hypertension, K21.9 - Gastro-esophageal reflux disease without esophagitis, R19.7 - Diarrhea, unspecified Thyroid Stim Hormone (TSH) Today I10 - Essential (primary) hypertension, K21.9 - Gastro-esophageal reflux disease without esophagitis, R19.7 - Diarrhea, unspecified T4 Free Direct Today I10 - Essential (primary) hypertension, K21.9 - Gastro- esophageal reflux disease without esophagitis, R19.7 - Diarrhea, unspecified Anti-Parietal Cell AB, QN Today I10 - Essential (primary) hypertension, K21.9 - Gastro-esophageal reflux disease without esophagitis, R19.7 - Diarrhea, unspecified Gastrin, Serum Today I10 - Essential (primary) hypertension, K21.9 - Gastro- esophageal reflux disease without esophagitis, R19.7 - Diarrhea, unspecified Chromogranin A Today I10 - Essential (primary) hypertension, K21.9 - Gastro- esophageal reflux disease without esophagitis, R19.7 - Diarrhea, unspecified Intrinsic Factor Ab Today I10 - Essential (primary) hypertension, K21.9 - Gastro-esophageal reflux disease without esophagitis, R19.7 - Diarrhea, unspecified Catecholamines, Plasma Today I10 - Essential (primary) hypertension, K21.9 - Gas tro-esophageal reflux disease without esophagitis, R19.7 - Diarrhea, unspecified Catachol+VMA, 24 HR UR Today I10 - Essential (primary) hypertension, K21.9 - Gastro-esophageal reflux disease without esophagitis, R19.7 - Diarrhea, unspecified ANCA Today I10 - Essential (primary) hypertension, K21.9 - Gastro-esophageal reflux disease without esophagitis, R19.7 - Diarrhea, unspecified Miscellaneous Lab Procedure Today I10 - Essential (primary) hypertension, K21.9 - Gastro-esophageal reflux disease without esophagitis, R19.7 - Diarrhea, unspecified I have examined the patient and the H&P has been reviewed. There are no clinical changes since date of exam.
[2024-02-10 07:20] VITALS: BP 112/74; BP 92/78; PULSE 110; RESP 18; TEMP 36.5; O2SAT 100
[2024-02-10 07:25] VITALS: BP 112/74; BP 117/99; PULSE 101; RESP 16; O2SAT 100
--- NOTE | 2024-02-10 07:27 | OP.CCLET_ITS ---
02/10/2024 Michael Hicks [address] [place] [address] Re : Upper GI endoscopy procedure for Shira Over Dear Dr. Hicks This procedure was performed on Saturday, February 10, 2024. My impressions and recommendations are as follows: Impressions : - Normal esophagus. - Erythematous mucosa in the gastric body and antrum. Biopsied. - No gross lesions in the second portion of the duodenum. Biopsied. Recommendations : - Discharge patient to home. - Resume previous diet. - Continue present medications. - Await pathology results. My findings are described in the full procedure note, which is enclosed. If I can be of further assistance, please feel free to contact me at . Sincerely, Pranay Saenz, 02/10/2024 7:25:55 AM This report has been signed electronically.
--- NOTE | 2024-02-10 07:27 | OP.EGD_ITS ---
Patient Name: Shira Morse Procedure Date: 02/10/2024 6:33 AM Date of : 1980 Age: 43 Procedure: Upper GI endoscopy Indications: Epigastric abdominal pain Providers: Pranay Saenz DO Medicines: Monitored Anesthesia Care Patient Profile: This is a 43 year old female. Refer to note in patient chart for documentation of history and physical. Patient has symptoms of chronic abdominal cramping and acute epigastric abdominal pain. Complications: No immediate complications. Procedure: Pre-Anesthesia Assessment: - Prior to the procedure, a History and Physical was performed, and patient medications and allergies were reviewed. The risks and benefits of the procedure and the sedation options and risks were discussed with the patient. All questions were answered and informed consent was obtained. Patient identification and proposed procedure were verified by the physician. Mental Status Examination: normal. Prophylactic Antibiotics: The patient does not require prophylactic antibiotics. Prior Anticoagulants: The patient has taken no anticoagulant or antiplatelet agents. ASA Grade Assessment: II - A patient with mild systemic disease. After reviewing the risks and benefits, the patient was deemed in satisfactory condition to undergo the procedure. The anesthesia plan was to use monitored anesthesia care (MAC). Immediately prior to administration of medications, the patient was re-assessed for adequacy to receive sedatives. The heart rate, respiratory rate, oxygen saturations, blood pressure, adequacy of pulmonary ventilation, and response to care were monitored throughout the procedure. The physical status of the patient was re-assessed after the procedure. After obtaining informed consent, the endoscope was passed under direct vision. Throughout the procedure, the patient's blood pressure, pulse, and oxygen saturations were monitored continuously. The colonoscope was introduced through the mouth, and advanced to the second part of duodenum. The upper GI endoscopy was accomplished without difficulty. The patient tolerated the procedure well. Scope In: 6:55:15 AM Scope Out: 6:59:24 AM Total Procedure Duration Time 0 hours 4 minutes 9 seconds Findings: The examined esophagus was normal. Patchy mildly erythematous mucosa without bleeding was found in the gastric body and in the gastric antrum. Biopsies were taken with a cold forceps for histology. Verification of patient identification for the specimen was done. Estimated blood loss was minimal. Biopsies were taken with a cold forceps for Helicobacter pylori testing. Verification of patient identification for the specimen was done. Estimated blood loss was minimal. No gross lesions were noted in the second portion of the duodenum. Biopsies were taken with a cold forceps for histology. Verification of patient identification for the specimen was done. Estimated blood loss was minimal. Impression: - Normal esophagus. - Erythematous mucosa in the gastric body and antrum. Biopsied. - No gross lesions in the second portion of the duodenum. Biopsied. Recommendation: - Discharge patient to home. - Resume previous diet. - Continue present medications. - Await pathology results. Procedure Code(s): --- Professional --- 46304, Esophagogastroduodenoscopy, flexible, transoral; with biopsy, single or multiple CPT copyright 2021 [employer]. All rights reserved. The codes documented in this report are preliminary and upon blueprinting and photocopy supervisor review may be revised to meet current compliance requirements. Pranay Saenz DO 02/10/2024 7:25:55 AM This report has been signed electronically. Number of Addenda: 0 Note Initiated On: 02/10/2024 6:33 AM
[2024-02-10 07:30] VITALS: BP 112/74; BP 112/81; PULSE 98; RESP 16; O2SAT 100
--- NOTE | 2024-02-10 07:33 | OP.COLON_ITS ---
Patient Name: Shira Morse Procedure Date: 02/10/2024 6:59 AM Date of : 1980 Age: 43 Procedure: Colonoscopy Indications: Chronic diarrhea Providers: Pranay Saenz DO Medicines: Monitored Anesthesia Care Patient Profile: This is a 43 year old female. Refer to note in patient chart for documentation of history and physical. Patient has symptoms of chronic abdominal cramping and acute epigastric abdominal pain. Last Colonoscopy: date unknown. Unable to locate last colonoscopy report. Patient has symptoms of acute abdominal cramping, acute global abdominal pain and acute diarrhea. Complications: No immediate complications. Procedure: Pre-Anesthesia Assessment: - Prior to the procedure, a History and Physical was performed, and patient medications and allergies were reviewed. The risks and benefits of the procedure and the sedation options and risks were discussed with the patient. All questions were answered and informed consent was obtained. Patient identification and proposed procedure were verified by the physician. Mental Status Examination: normal. Prophylactic Antibiotics: The patient does not require prophylactic antibiotics. Prior Anticoagulants: The patient has taken no anticoagulant or antiplatelet agents. ASA Grade Assessment: II - A patient with mild systemic disease. After reviewing the risks and benefits, the patient was deemed in satisfactory condition to undergo the procedure. The anesthesia plan was to use monitored anesthesia care (MAC). Immediately prior to administration of medications, the patient was re-assessed for adequacy to receive sedatives. The heart rate, respiratory rate, oxygen saturations, blood pressure, adequacy of pulmonary ventilation, and response to care were monitored throughout the procedure. The physical status of the patient was re-assessed after the procedure. After I obtained informed consent, the scope was passed under direct vision. Throughout the procedure, the patient's blood pressure, pulse, and oxygen saturations were monitored continuously. The colonoscope was introduced through the anus and advanced to the terminal ileum. The colonoscopy was performed without difficulty. The patient tolerated the procedure well. The quality of the bowel preparation was adequate. The terminal ileum, ileocecal valve, appendiceal orifice, and rectum were photographed. Scope In: 7:01:09 AM Scope Withdrawal Time 0 hours 6 minutes 54 seconds Scope Out: 7:13:03 AM Total Procedure Duration Time 0 hours 11 minutes 54 seconds Findings: The perianal and digital rectal examinations were normal. An area of mildly congested mucosa was found at the hepatic flexure, in the ascending colon and in the cecum. Biopsies were taken with a cold forceps for histology. Verification of patient identification for the specimen was done. Estimated blood loss was minimal. The terminal ileum appeared normal. Biopsies were taken with a cold forceps for histology. Verification of patient identification for the specimen was done. Estimated blood loss was minimal. Impression: - Congested mucosa at the hepatic flexure, in the ascending colon and in the cecum. Biopsied. - The examined portion of the ileum was normal. Biopsied. Recommendation: - Discharge patient to home. - Resume previous diet. - Continue present medications. - Await pathology results. - Repeat colonoscopy in 5 years for surveillance. Procedure Code(s): --- Professional --- 26307, Colonoscopy, flexible; with biopsy, single or multiple CPT copyright 2021 [employer]. All rights reserved. The codes documented in this report are preliminary and upon policy advisor review may be revised to meet current compliance requirements. Pranay Saenz DO 02/10/2024 7:33:23 AM This report has been signed electronically. Number of Addenda: 0 Note Initiated On: 02/10/2024 6:59 AM
--- NOTE | 2024-02-10 07:34 | OP.CCLET_ITS ---
02/10/2024 Michael Hicks [address] [place] [address] Re : Colonoscopy procedure for Shira Over Dear Dr. Hicks This procedure was performed on Saturday, February 10, 2024. My impressions and recommendations are as follows: Impressions : - Congested mucosa at the hepatic flexure, in the ascending colon and in the cecum. Biopsied. - The examined portion of the ileum was normal. Biopsied. Recommendations : - Discharge patient to home. - Resume previous diet. - Continue present medications. - Await pathology results. - Repeat colonoscopy in 5 years for surveillance. My findings are described in the full procedure note, which is enclosed. If I can be of further assistance, please feel free to contact me at . Sincerely, Pranay Saenz, 02/10/2024 7:33:23 AM This report has been signed electronically.
[2024-02-10 07:36] VITALS: BP 110/80; BP 112/74; PULSE 100; RESP 16; TEMP 36.3; O2SAT 100
[2024-02-10 07:54] VITALS: BP 112/74
== END 2024-02-10 08:02 | disposition home or self-care (01) ==
LOC: EN 06:27 → AC 06:28
PROVIDERS: PCP Family Medicine; Referring Provider Family Medicine; Visit Provider Internal Medicine Gastroenterology
PROC: 0DJD8ZZ Inspection of Lower Intestinal Tract, Via Natural or Artificial Opening Endoscopic (ICD-10-PCS; CPT 45378; principal; 2024-02-10 06:25)
DX: A04.71 Enterocolitis due to Clostridium difficile, recurrent (principal); K29.50 Unspecified chronic gastritis without bleeding; K21.9 Gastro-esophageal reflux disease without esophagitis; G89.29 Other chronic pain; I10 Essential (primary) hypertension; Q61.5 Medullary cystic kidney; F17.200 Nicotine dependence, unspecified, uncomplicated; Z79.899 Other long term (current) drug therapy
CPT/HCPCS: 45380; 43239; 88305; 88342; J2405

== ENCOUNTER → 2024-03-01 | Outpatient (CLI) | payer OTHER, SELFPAY ==
[2024-03-03 16:10] LABS: Gastrin, Serum 87 pg/mL (0-115)
== END | disposition home or self-care (01) ==
LOC: LAB 09:54
PROVIDERS: PCP Family Medicine; Referring Provider Internal Medicine Gastroenterology; Visit Provider Internal Medicine Gastroenterology
DX: R19.7 Diarrhea, unspecified (principal); R10.9 Unspecified abdominal pain
CPT/HCPCS: 36415; 82941

== ENCOUNTER → 2025-07-11 | Outpatient (CLI) | payer OTHER, SELFPAY | END | disposition home or self-care (01) | LOC: MTLAB 13:59 | PROVIDERS: PCP Family Medicine; Referring Provider Internal Medicine Gastroenterology; Visit Provider Internal Medicine Gastroenterology | DX: Z86.19 Personal history of other infectious and parasitic diseases (principal) | CPT/HCPCS: 87493 ==